=== PATIENT | female | born 1945 | race Caucasian/White ===

== ENCOUNTER 2016-05-06 07:53 | Outpatient (CLI) | payer MEDICARE, MEDICAID ==
[2016-05-06] MEDS ORDERED: GADOBUTROL 10 MMOL/10 ML VIAL IVP ONE (09:14)
== END 2016-05-06 07:54 | disposition home or self-care (01) ==
DX: C43.71 Malignant melanoma of right lower limb, including hip (principal); G93.0 Cerebral cysts; R26.81 Unsteadiness on feet
CPT/HCPCS: 36415; 70553; 82565; A9585

== ENCOUNTER 2016-05-31 | Outpatient (CLI) | payer MEDICARE, MEDICAID | END 2016-05-31 10:12 | disposition EMS.NT ==

== ENCOUNTER 2017-05-01 10:08 | Outpatient (CLI) | payer MEDICARE, MEDICAID ==
[2017-05-01 18:06] LABS: BASOPHILS % (AUTO) 0.6 %; EOSINOPHILS # (AUTO) 0.2 10^3/uL (0.0-0.7); EOSINOPHILS % (AUTO) 3.8 %; HGB - HEMOGLOBIN 13.4 g/dL (12.0-16.0); LYMPHOCYTES % (AUTO) 32.7 %; MEAN CORPUSCULAR HEMOGLOBIN 30.3 pg (27.0-31.0); MEAN CORPUSCULAR VOLUME 91.9 fL (81.0-99.0); MEAN PLATELET VOLUME 9.6 fL (7.9-10.8); MONOCYTES # (AUTO) 0.4 10^3/uL (0.0-1.0); MONOCYTES % (AUTO) 6.8 %; NEUTROPHILS # (AUTO) 3.4 10^3/uL (1.5-6.6); NEUTROPHILS % (AUTO) 56.1 %; PLT - PLATELET COUNT 301 10^3/uL (130-450); RED BLOOD COUNT 4.42 10^6/uL (4.20-5.40); RED CELL DISTRIBUTION WIDTH 14.4 % (12.0-15.0)
[2017-05-01 18:27] LABS: ALBUMIN 3.6 g/dL (3.2-5.5); ALBUMIN/GLOBULIN RATIO 1.1 (1.0-2.2); ALKALINE PHOSPHATASE 43 IU/L (42-121); ALT ALANINE AMINOTRANSFERASE 29 IU/L (10-60); AST ASPARTATE AMINOTRANSFERASE 22 IU/L (10-42); BILIRUBIN,TOTAL 0.3 mg/dL (0.2-1.0); BUN - BLOOD UREA NITROGEN 18 mg/dL (6-20); CALCIUM 9.1 mg/dL (8.5-10.3); CARBON DIOXIDE - CO2 27 mmol/L (21-32); CHLORIDE 105 mmol/L (101-111); CHOL/HDL RATIO 4.5 (<4.4); CHOLESTEROL 196 mg/dL; CREATININE 0.7 mg/dL (0.4-1.0); GFR - MDRD 83 (>89); GLUCOSE 94 mg/dL (70-100); HDL CHOLESTEROL 44 mg/dL; LDL CHOLESTEROL,CALCULATED 121 mg/dL; LDL/HDL RATIO 2.8 (<4.4); SODIUM 138 mmol/L (135-145); TOTAL PROTEIN 6.8 g/dL (6.7-8.2); VLDL CHOLESTEROL 31 mg/dL
[2017-05-01 18:35] LABS: HB2 TOTAL 14.6 g/dL; HEMOGLOBIN A1C 0.57 g/dL; HEMOGLOBIN A1C % 5.7 % (4.6-6.2)
== END 2017-05-01 10:09 | disposition home or self-care (01) ==
LOC: LAB.F 10:08
PROVIDERS: ATTEND Physician Assistant Medical
DX: E88.81 Metabolic syndrome and other insulin resistance (principal); R73.01 Impaired fasting glucose; E78.00 Pure hypercholesterolemia, unspecified; D64.9 Anemia, unspecified; E04.1 Nontoxic single thyroid nodule
CPT/HCPCS: 36415; 80053; 80061; 83036; 84443; 85025

== ENCOUNTER 2017-08-14 13:43 | Outpatient (CLI) | payer MEDICARE, MEDICAID | END 2017-08-14 13:44 | disposition home or self-care (01) | LOC: DI 13:43 | PROVIDERS: ATTEND Nurse Practitioner Family | DX: R42 Dizziness and giddiness (principal); R06.02 Shortness of breath; I51.7 Cardiomegaly; I27.20 Pulmonary hypertension, unspecified; I51.9 Heart disease, unspecified | CPT/HCPCS: 93306 ==

== ENCOUNTER 2018-09-24 08:00 | Outpatient (CLI) | payer MEDICARE ==
[2018-09-24 18:11] LABS: BASOPHILS # (AUTO) 0.1 10^3/uL (0.0-0.1); BASOPHILS % (AUTO) 0.8 %; EOSINOPHILS # (AUTO) 0.2 10^3/uL (0.0-0.7); EOSINOPHILS % (AUTO) 3.5 %; HGB - HEMOGLOBIN 13.3 g/dL (12.0-16.0); LYMPHOCYTES # (AUTO) 1.9 10^3/uL (1.5-3.5); LYMPHOCYTES % (AUTO) 30.1 %; MEAN CORPUSCULAR HEMOGLOBIN 29.3 pg (27.0-31.0); MEAN CORPUSCULAR HGB CONC 32.5 g/dL (32.0-36.0); MEAN CORPUSCULAR VOLUME 90.4 fL (81.0-99.0); MEAN PLATELET VOLUME 9.4 fL (7.9-10.8); MONOCYTES # (AUTO) 0.4 10^3/uL (0.0-1.0); MONOCYTES % (AUTO) 6.4 %; NEUTROPHILS # (AUTO) 3.8 10^3/uL (1.5-6.6); NEUTROPHILS % (AUTO) 59.2 %; PLT - PLATELET COUNT 310 10^3/uL (130-450); RED BLOOD COUNT 4.52 10^6/uL (4.20-5.40); RED CELL DISTRIBUTION WIDTH 14.6 % (12.0-15.0); WHITE BLOOD COUNT 6.4 x10^3/uL (4.8-10.8)
[2018-09-24 18:30] LABS: ALBUMIN 3.9 g/dL (3.2-5.5); ALBUMIN/GLOBULIN RATIO 1.3 (1.0-2.2); BILIRUBIN,TOTAL 0.3 mg/dL (0.2-1.0); CALCIUM 9.4 mg/dL (8.5-10.3); TOTAL PROTEIN 6.9 g/dL (6.7-8.2)
[2018-09-24 19:31] LABS: HB2 TOTAL 13.8 g/dL; HEMOGLOBIN A1C 0.55 g/dL; HEMOGLOBIN A1C % 5.8 % (4.6-6.2)
== END 2018-09-24 23:59 | disposition home or self-care (01) ==
LOC: LAB.F 08:00
PROVIDERS: ATTEND Physician Assistant Medical
DX: I10 Essential (primary) hypertension (principal); R73.01 Impaired fasting glucose; E04.1 Nontoxic single thyroid nodule
CPT/HCPCS: 36415; 80053; 83036; 84443; 85025

== ENCOUNTER 2018-12-14 11:01 | Outpatient (CLI) | payer MEDICARE | END 2018-12-14 11:02 | disposition critical access hospital (66) | LOC: EMS 11:01 | PROVIDERS: ATTEND Surgery | DX: R07.1 Chest pain on breathing (principal); M54.9 Dorsalgia, unspecified; R05 Cough | CPT/HCPCS: A0425; A0427 ==

== ENCOUNTER 2018-12-14 11:29 | Observation (INO) | payer MEDICARE ==
--- NOTE | 2018-12-14 11:58 | ED Physician Documentation ---
PD HPI CHEST PAIN - Stated complaint Stated Complaint: BACK PX - Chief complaint Chief Complaint: General - History obtained from History obtained from: Patient - History of Present Illness Timing - onset: How many days ago (8) Timing - onset during: Rest Timing - details: Abrupt onset, Still present (worsening through the week. Initially left sided, but having right chest pain now the past couple of days.) Quality: Sharp, Pain. No: Pressure, Tightness Location: Left chest (initially), Right chest (now right sided as well) Radiation: Back. No: Jaw, Neck, Abdominal Worsened by: Exertion, Inspiration. No: Movement Associated symptoms: Shortness of air, Feeling faint / dizzy. No: Nausea, Palpitations, Cough Similar symptoms before: Has not had sx before Recently seen: Clinic (seen at clinic today and referred to ER by PV. Had been to clinic couple weeks ago for just fatigue and dyspnea. Had not had chest pain at that time.) Review of Systems Constitutional: reports: Fatigue. denies: Fever, Chills, Myalgias Nose: denies: Rhinorrhea / runny nose, Congestion Throat: denies: Sore throat Cardiac: reports: Chest pain / pressure, Calf pain (had some pain right medial thigh and calf about 2 weeks ago. This improved though just prior to onset of the pleuritic pain.). denies: Palpitations, Pedal edema Respiratory: reports: Dyspnea. denies: Cough, Wheezing GI: denies: Abdominal Pain, Nausea, Vomiting, Diarrhea, Bloody / black stool : denies: Dysuria, Frequency, Hematuria Musculoskeletal: denies: Neck pain, Back pain Neurologic: reports: Generalized weakness, Near syncope (feeling lightheaded with standing and walking recently). denies: Focal weakness, Numbness, Syncope Endocrine: denies: Weight loss, Easy bruising / bleeding PD PAST MEDICAL HISTORY - Past Medical History Cardiovascular: Hypertension, High cholesterol, Atrial fibrillation Respiratory: None Endocrine/Autoimmune: Other GI: None, GI bleed (from diverticulitis when on Lovenox post op hip surgery in ? 2014. No other bleeding after that. 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: Hysterectomy, Oophrectomy HEENT: Other Derm: Skin cancer surgery - Present Medications Home Medications: Ambulatory Orders Medication Instructions Recorded Confirmed Citalopram [CeleXA] 40 mg PO DAILY 01/06/13 12/01/14 Metoprolol Succinate [Toprol Xl] 50 mg PO BID 04/21/13 12/01/14 Lisinopril/Hydrochlorothiazide 2 each PO DAILY 07/14/14 12/01/14 [Zestoretic 20-12.5 mg Tablet] Aspirin [Aspirin EC] 81 mg PO DAILY 12/14/18 12/14/18 Buspirone HCl 10 mg PO BID 12/14/18 12/14/18 Doxylamine Succinate [[place]-R[place]] 50 mg PO DAILY PRN 12/14/18 12/14/18 metFORMIN [Glucophage] 500 mg PO DAILY 12/14/18 12/14/18 - Allergies Allergies/Adverse Reactions: Allergies Allergy/AdvReac Type Severity Reaction Status Date / Time Sulfa (Sulfonamide Allergy Severe Hives Verified 12/14/18 11:36 Antibiotics) buspirone HCl * [From BuSpar] AdvReac Severe Confusion Verified 12/14/18 11:36 fluoxetine HCl * AdvReac Severe Confusion Verified 12/14/18 11:36 [From Prozac] paroxetine HCl * [From Paxil] AdvReac Severe Confusion Verified 12/14/18 11:36 sertraline HCl * AdvReac Severe Confusion Verified 12/14/18 11:36 [From Zoloft] venlafaxine HCl * AdvReac Severe Confusion Verified 12/14/18 11:36 [From Effexor] amoxicillin trihydrate * AdvReac Intermediate Nausea/Vomi Verified 12/14/18 11:36 [From Augmentin] ting erythromycin base AdvReac Intermediate Nausea Verified 12/14/18 11:36 potassium clavulanate * AdvReac Intermediate Nausea/Vomi Verified 12/14/18 11:36 [From Augmentin] ting - Social History Does the pt smoke?: No Smoking Status: Never smoker PD ED PE NORMAL - Vitals Vital signs reviewed: Yes - General General: Alert and oriented X 3, No acute distress, Well developed/nourished - HEENT HEENT: Atraumatic, Pharynx benign - Neck Neck: Supple, no meningeal sign, No adenopathy - Cardiac Cardiac: RRR, No murmur - Respiratory Respiratory: Clear bilaterally (no wheeze nor coarse sounds) - Abdomen Abdomen: Soft, Non tender - Female Female : Deferred - Rectal Rectal: Deferred - Back Back: No CVA TTP - Derm Derm: Normal color, Warm and dry - Extremities Extremities: No tenderness to palpate, Normal ROM s pain, No edema, No calf tenderness / cord - Neuro Neuro: Alert and oriented X 3, No motor deficit, Normal speech Results - Vitals Vitals: Vital Signs - 24 hr 12/14/18 12/14/18 12/14/18 11:30 11:43 13:13 Temperature 37.1 C Heart Rate 59 L 57 L 61 Respiratory 20 17 18 Rate Blood Pressure 150/93 H 166/97 H 158/84 H O2 Saturation 99 97 100 12/14/18 15:05 Temperature Heart Rate 58 L Respiratory 15 Rate Blood Pressure 179/95 H O2 Saturation 98 Oxygen O2 Source Room air - EKG (time done) 11:54 Rate: Rate (enter#) (55) Rhythm: NSR [place]: Normal Intervals: Normal HI, LBBB QRS: Normal Ischemia: Normal ST segments. No: ST elevation c/w ischemia, ST depression - Labs Labs: Laboratory Tests 12/14/18 12/14/18 12/14/18 12:00 12:00 12:38 WBC 9.1 RBC 4.36 Hgb 12.2 Hct 38.8 MCV 89.0 MCH 28.0 MCHC 31.4 L RDW 13.6 Plt Count 371 MPV 10.0 Neut # (Auto) 6.3 Lymph # (Auto) 1.9 [place] # (Auto) 0.6 Eos # (Auto) 0.3 Baso # (Auto) 0.0 Absolute Nucleated RBC 0.00 Nucleated RBC % 0.0 PT INR Sodium 140 Potassium 3.6 Chloride 103 Carbon Dioxide 25 Anion Gap 12.0 BUN 19 Creatinine 1.0 Estimated GFR (MDRD) 55 L Glucose 106 H Calcium 9.7 Magnesium 2.0 Total Bilirubin 0.4 AST 14 ALT 12 Alkaline Phosphatase 59 Troponin I High Sens B-Natriuretic Peptide Total Protein 7.2 Albumin 3.5 Globulin 3.7 Albumin/Globulin Ratio 0.9 L Lipase 26 12/14/18 12/14/18 12/14/18 12:38 12:38 13:20 WBC RBC Hgb Hct MCV MCH MCHC RDW Plt Count MPV Neut # (Auto) Lymph # (Auto) [place] # (Auto) Eos # (Auto) Baso # (Auto) Absolute Nucleated RBC Nucleated RBC % PT 14.5 H INR 1.3 H Sodium Potassium Chloride Carbon Dioxide Anion Gap BUN Creatinine Estimated GFR (MDRD) Glucose Calcium Magnesium Total Bilirubin AST ALT Alkaline Phosphatase Troponin I High Sens 4.0 B-Natriuretic Peptide 154 H Total Protein Albumin Globulin Albumin/Globulin Ratio Lipase - Rads (name of study) chest CT-A Radiology: Prelim report reviewed, Discussed with rads (bilateral segmental clots), See rad report chest xray Radiology: Prelim report reviewed (no acute findings), See rad report PD MEDICAL DECISION MAKING - ED course Complexity details: reviewed results (Several segmental PEs are noted. Unclear whether this was one episode with a showering clot or whether there is been sequential clots given her progression of dyspnea and now some right-sided pain 2. She had diverticulitis with bleeding during Lovenox injections after her hip surgery years ago. No subsequent problems with diverticulitis. I would not see this is a contraindication to anticoagulation at this point. I talked with her about it and she agrees.), considered differential (Given the pleuritic chest pain and dyspnea, would look for these as well as effusions or pneumonia. Can check for heart attack and heart failure. Given her report of right thigh pain prior to the onset of the dyspnea and chest pain, would also consider aortic dissection and pulmonary emboli. Will check for the above problems. We can give her some pain medicines to help with a pleuritic pain.), d/w patient, d/w csm consultant (Hospitalist) Departure - Departure Disposition: ED Place in Observation Clinical Impression: Pleuritic chest pain, General weakness Pulmonary emboli Qualifiers: Pulmonary embolism type: other Chronicity: acute Acute cor pulmonale presence: without acute cor pulmonale Qualified Code(s): I26.99 - Other pulmonary embolism without acute cor pulmonale Condition: Stable Record reviewed to determine appropriate education?: Yes
--- NOTE | 2018-12-14 12:10 | XRAY Report ---
Reason: back/chest pain Procedure Date: 12/14/2018 Accession Number: [id number] / [id number] Procedure: XR - Chest 1 View X-Ray CPT Code: 90871 FULL RESULT: EXAM: CHEST RADIOGRAPHY EXAM DATE: 12/14/2018 12:00 PM. CLINICAL HISTORY: Back/chest pain. COMPARISON: XR CHEST PA AND LAT 02/14/2011 5:36 PM. TECHNIQUE: 1 view. FINDINGS: Lungs/Pleura: No focal opacities evident. No pleural effusion. No pneumothorax. Mediastinum: Accounting for interval time frame and differences in technique, the cardiomediastinal contour may be unchanged but now appears more prominent. Other: None. IMPRESSION: Interval increase in prominence of the cardiomediastinal silhouette which may be within limitations of the technique. Otherwise no acute cardiopulmonary abnormality. RADIA
[2018-12-14 12:12] LABS: BASOPHILS % (AUTO) 0.3 %; EOSINOPHILS # (AUTO) 0.3 10^3/uL (0.0-0.7); EOSINOPHILS % (AUTO) 3.1 %; HGB - HEMOGLOBIN 12.2 g/dL (12.0-16.0); LYMPHOCYTES # (AUTO) 1.9 10^3/uL (1.5-3.5); LYMPHOCYTES % (AUTO) 21.3 %; MEAN CORPUSCULAR HGB CONC 31.4 g/dL (32.0-36.0); MONOCYTES # (AUTO) 0.6 10^3/uL (0.0-1.0); MONOCYTES % (AUTO) 6.1 %; NEUTROPHILS # (AUTO) 6.3 10^3/uL (1.5-6.6); NEUTROPHILS % (AUTO) 68.9 %; PLT - PLATELET COUNT 371 10^3/uL (130-450); RED BLOOD COUNT 4.36 10^6/uL (4.20-5.40); RED CELL DISTRIBUTION WIDTH 13.6 % (12.0-15.0); WHITE BLOOD COUNT 9.1 x10^3/uL (4.8-10.8)
[2018-12-14 12:27] LABS: ALBUMIN 3.5 g/dL (3.2-5.5); ALBUMIN/GLOBULIN RATIO 0.9 (1.0-2.2); BILIRUBIN,TOTAL 0.4 mg/dL (0.2-1.0); CALCIUM 9.7 mg/dL (8.5-10.3); TOTAL PROTEIN 7.2 g/dL (6.7-8.2)
[2018-12-14] MEDS ORDERED: HYDROmorphone 1 MG/ML CARPUJECT IVP STA (13:16)
[2018-12-14] MEDS ORDERED: KETOROLAC 15 MG/ML VIAL IVP STA (13:16)
[2018-12-14] MEDS ORDERED: DEXAMETHASONE 10 MG/ML VIAL IVP STA (13:16)
[2018-12-14] MEDS ORDERED: IOVERSOL 320 100 ML VIAL IVP ONE ×2 (13:35→13:54)
--- NOTE | 2018-12-14 14:10 | CT Report ---
Reason: pleuritic chest pain for a week; dyspnea Procedure Date: 12/14/2018 Accession Number: [id number] / [id number] Procedure: CT - ANGIO CHEST W/WO CPT Code: FULL RESULT: EXAM: CT ANGIOGRAM CHEST EXAM DATE: 12/14/2018 01:51 PM. CLINICAL HISTORY: Pleuritic chest pain for a week; dyspnea. COMPARISON: None. TECHNIQUE: Routine helical imaging was performed through the chest in the pulmonary arterial phase. IV Contrast: 90 mL of Optiray 320 contrast . Reconstructions: Coronal 3-D MIP reconstructions.Sagittal and coronal. In accordance with CT protocol optimization, one or more of the following dose reduction techniques were utilized for this exam: automated exposure control, adjustment of mA and/or KV based on patient size, or use of iterative reconstructive technique. FINDINGS: Pulmonary Arteries: Diagnostic quality: Adequate through the segmental arteries. Intraluminal filling defects consistent with pulmonary emboli are seen within the lobular and segmental pulmonary arteries to the bilateral lower lobes, and the proximal left upper lobe pulmonary artery. RV/LV is within normal limits. There is no interventricular septal bowing. There is no reflux of contrast material in the IVC. Lungs/Pleura: Small consolidations at both posterior lung bases. No lung nodules identified. No pneumothorax. Small bilateral pleural fluid collections. Mediastinum: Normal. No cardiac enlargement or adenopathy. Thoracic Aorta: Unremarkable. Upper Abdomen: Unremarkable. Other: None. IMPRESSION: Bilateral pulmonary emboli involving the lobar and segmental arteries to both lower lobes, and the lobar pulmonary artery to the left upper lobe. RADIA The critical result notification system was initiated by Dr. Gold Maravilla at 02:08 PM on 12/14/2018. ADDENDUM: 12/14/18 14:28 The above critical result findings were discussed with Deon Rowe by Dr. Gold Maravilla at 02:28 PM on 12/14/2018.
[2018-12-14] MEDS ORDERED: ENOXAPARIN 100 MG/ML SYRINGE SUBQ STA (14:48)
[2018-12-14] MEDS ORDERED: MORPHINE 2 MG/ML CARPUJECT IVP PRN (15:16)
[2018-12-14] MEDS ORDERED: SODIUM CHLORIDE FLUSH 0.9% 10 ML SYRINGE IVP PRN (15:16)
[2018-12-14] MEDS ORDERED: PROCHLORPERAZINE 10 MG/2 ML VIAL IVP PRN (15:16)
[2018-12-14] MEDS ORDERED: ACETAMINOPHEN 325 MG TABLET PO PRN (15:16)
[2018-12-14 15:44] LABS: INR 1.3 (0.8-1.2); PT - PROTHROMBIN TIME 14.5 secs (9.9-12.6)
[2018-12-14 15:57] LABS: HB2 TOTAL 12.7 g/dL; HEMOGLOBIN A1C 0.53 g/dL
[2018-12-14] MEDS ORDERED: DOXYLAMINE 25 MG TABLET PO PRN (16:43)
[2018-12-14] MEDS: INSULIN ASPART 300 UNIT/3 ML PEN SUBQ SCH ×2 (17:32→20:39)
[2018-12-14] MEDS ORDERED: oxyCODONE/ACET 5/325 Prepack 4 PO SCH (18:00)
--- NOTE | 2018-12-14 18:05 | HISTORY & PHYSICAL EXAMINATION ---
DATE OF SERVICE: 12/14/2018 Physician: Leslie Valdivia MD HISTORY OF PRESENT ILLNESS: This is a 73-year-old white female with history of hypertension, obesity, prediabetes, anxiety, and malignant melanoma. In 2013, she was diagnosed with two areas of abnormal moles of the right lower extremity, and had positive lymph nodes in the right groin and pelvis removed with several surgeries. 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 Patient has a history of paroxysmal atrial fibrillation, takes metoprolol and aspirin, has seen a Pack Operator only once or twice for this. She does feel when she gets her rapid racing (which is her Afib), but these occur once or twice a year only. She has different episodes where she gets lightheaded and dizzy when she stands up and is also extremely short of breath at this period of time. These are recurrent, happen about five times per year, have never led to complete syncope. She needs to sit down immediately. Patient had one of these feelings 2-3 weeks ago, when she stood up and was extremely lightheaded plus short of breath, to the point of not being able to speak, and she sat down quickly. Around that period of time, she also noticed a tender, slightly reddened and hard vein in the right calf and thigh, which was painful. It lasted for several days. As this resolved, she started to get pleuritic chest pain occurring mostly in her mid back and worse at night. Over the last 1 week with these pleuritic episodes of pain slowly improving, she has felt new overall weakness. Yesterday, she goggled the word pleurisy, noticed that the symptoms of pulmonary embolism fit her symptoms, and she got in to see a clinic doctor today. They told her that she looked ashen and terrible, and advised to go to the emergency room. In the ER, her workup with a CTA of the chest shows that she has multiple bilateral pulmonary emboli. She is being placed in Observation to initiate anticoagulation and to watch for GI bleeding because in 2014, she had bleeding diverticuli when she was on Lovenox postop for a knee replacement. PAST MEDICAL HISTORY 1. Hypertension. 2. Paroxysmal atrial fibrillation. 3. Obesity. 4. Anxiety. 5. Malignant melanoma ("stage 4") of which she is a survivor. 6. History of diverticular bleed four years ago. 7. History of recurrent lightheadedness with shortness of breath occurring together. FAMILY HISTORY: Her father is not known to her. Her mother of ischemic bowel. She has a brother who of cancer and another brother who is alive and well. She has two children, both have recurrent clots and are on anticoagulants. MEDICATIONS: 1. Aspirin 81 mg daily. 2. Buspirone 10 mg b.i.d. 3. Celexa 40 mg daily. 4. Doxycycline 50 mg daily. 5. Lisinopril/HCTZ 20/12.5 mg b.i.d. 6. Metformin 500 mg daily. 7. Toprol XL 100 mg every night. SOCIAL HISTORY: She is a retired [employer], worked at the [employer] and at [employer] and retired five years ago. 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 She has been twice to different husbands, currently is to a , who she lives with. Patient is an ex-smoker who quit one year ago. She drinks rare alcohol (two drinks per year). She uses no illicit drugs. REVIEW OF SYSTEMS: A comprehensive review of systems was performed and the pertinent positives are listed, the rest are negative. PHYSICAL EXAMINATION GENERAL: Elderly white female. She is in no respiratory distress, but does look weak, ashen and tired. VITAL SIGNS: Blood pressure 170/80, heart rate 50 in sinus rhythm, afebrile, room air saturation 96-98%. HEENT: Reveals poor dentition, but moist oral mucosa. NECK: Without JVD or carotid bruits. CHEST: Diminished breath sounds at the left posterior base. There are no rales, wheezes or any rub heard. HEART: Sounds are normal. No audible murmurs. There is no RV heave or gallop. ABDOMEN: Soft, obese, nontender. EXTREMITIES: Show no clubbing, cyanosis or edema. There is no palpable cord. She has a scar over the left knee from knee replacement. NEUROLOGIC: Grossly intact. LABORATORY STUDIES: INR 1.3. Normal CBC. Normal electrolytes. Normal BUN and creatinine. A1c is 6. Magnesium 2. Normal liver tests. HS troponin Is normal at 4.0. BNP is mildly elevated at 154. Lipase normal. IMAGING: Chest x-ray, mildly increased heart size, otherwise no abnormality. CTA of the chest shows small consolidation of both posterior lung bases, small bilateral pleural fluid, and intraluminal filling defects consistent with pulmonary emboli seen within the lobar and segmental pulmonary arteries to the bilateral lower lobes and the proximal left upper lobe pulmonary artery. EKG: Normal sinus rhythm, left bundle branch block. Since her last EKG from several years ago, the left bundle branch block is new. IMPRESSION/DIAGNOSES 1. Multiple pulmonary emboli. 2. Lightheadedness. 3. Borderline diabetes. 4. Hypertension. 5. History of paroxysmal atrial fibrillation. 6. Left bundle branch block. 7. History of gastrointestinal diverticular bleed. 8. History of malignant melanoma. 9. History of anxiety. PLAN 1. Place patient in Observation on a telemetry to watch for arrhythmias. 2. Obtain an Echo to evaluate LV contractility and whether there is RV strain or pulmonary hypertension. 3. Obtain Doppler of both legs to rule out DVT. 4. Continue with her Metformin, and start sliding scale insulin and fingerstick checks, carb-controlled diet. 5. Continue with her blood pressure medications. 6. She received Lovenox in the emergency room, therefore continue with anticoagulation using Eliquis at 10 mg b.i.d. dose x7 days and then 5 mg b.i.d. for at least 3 months. She will need outpatient evaluation of whether this was a provoked or unprovoked venous thrombosis. The history of 2 children with recurrent blood clots, makes an inherited Protein S or C deficiency likely. In addition, the years of recurrent lightheadedness accompanied with dyspnea could be recurrent episodes of pulmonary emboli causing respiratory symptoms and potentially decrease LV filling that causes orthostasis. Obtain orthostatic VS checks q shift. 7. Before discharge, she will need oximetry measured with exertion, to assess if she needs home O2. 8. Assess for gastrointestinal bleeding or drop in hemoglobin after several doses of the Eliquis. Currently, the benefit of using the anticoagulant outweighs the bleeding risk. This was discussed with patient and she is agreeable with the plan. 9. If there are hemodynamic abnormalities or significant GI bleeding, however, then there would be consideration for transfer for implant of an IVC filter and cardiopulmonary evaluation. DEEP VENOUS THROMBOSIS PROPHYLAXIS: Pharmaceutical. CODE STATUS: FULL CODE. ATTESTATION: Patient is expected to be discharged or transferred to another facility within 96 hours: Yes. cc: Elda Escoto PA-C TD: 12/14/2018 17:11 MTDD
[2018-12-14] MEDS: LISINOPRIL 20 MG TABLET PO SCH ×2 (19:38→19:40)
[2018-12-14] MEDS: FAMOTIDINE 20 MG TABLET PO SCH (20:40)
[2018-12-14] MEDS: busPIRone 5 MG TABLET PO SCH (20:40)
[2018-12-14] MEDS ORDERED: METOPROLOL SUCCINATE 50 MG TABLET PO SCH (21:00)
[2018-12-14] MEDS: SODIUM CHLORIDE FLUSH 0.9% 10 ML SYRINGE IVP SCH (23:29)
--- NOTE | 2018-12-15 00:38 | Ultrasound Report ---
Reason: Pulmonry emboli, eval for DVT source Procedure Date: 12/14/2018 Accession Number: [id number] / [id number] Procedure: US - Duplex Ext Veins Bilateral CPT Code: FULL RESULT: EXAM: BILATERAL LOWER EXTREMITY VENOUS ULTRASOUND EXAM DATE: 12/14/2018 11:50 PM. CLINICAL HISTORY: Pulmonry emboli, eval for DVT source. COMPARISON: None. TECHNIQUE: Real-time sonographic vascular imaging was performed by the insecticide supervisor through the lower extremities utilizing both color-flow and Doppler spectral analysis. Multiple district sales representative static images were saved for review. FINDINGS: Right: Common Femoral Vein (CFV): Occlusive DVT. CFV-GSV Junction: DVT extends into the right greater saphenous vein. Profunda Femoral Vein (PFV): Normal. Femoral Vein (FV) Prox: Normal. Femoral Vein (FV) Mid: Normal. Femoral Vein (FV) Dist: Normal. Popliteal Vein: Normal. Posterior Tibial Veins: Normal. Peroneal Veins: Normal. Left: Common Femoral Vein (CFV): Normal. CFV-GSV Junction: Normal. Profunda Femoral Vein (PFV): Normal. Femoral Vein (FV) Prox: Normal. Femoral Vein (FV) Mid: Normal. Femoral Vein (FV) Dist: Normal. Popliteal Vein: Normal. Posterior Tibial Veins: Normal. Peroneal Veins: Normal. Other: None. IMPRESSION: Right greater saphenous and common femoral DVT. RADIA The critical result notification system was initiated by Dr. aJiron Mcintosh at 12:30 AM on 12/15/2018. The above critical result findings were discussed with Dr. Stern by Dr. Jairon Mcintosh at 12:37 AM on 12/15/2018.
[2018-12-15] MEDS: APIXABAN 5 MG TABLET PO SCH ×2 (00:52→10:52)
[2018-12-15] MEDS: SODIUM CHLORIDE FLUSH 0.9% 10 ML SYRINGE IVP SCH ×2 (00:52→08:40)
[2018-12-15 06:08] LABS: BASOPHILS % (AUTO) 0.1 %; HGB - HEMOGLOBIN 11.1 g/dL (12.0-16.0); LYMPHOCYTES # (AUTO) 1.1 10^3/uL (1.5-3.5); LYMPHOCYTES % (AUTO) 11.1 %; MEAN CORPUSCULAR HEMOGLOBIN 28.3 pg (27.0-31.0); MEAN CORPUSCULAR HGB CONC 31.5 g/dL (32.0-36.0); MEAN CORPUSCULAR VOLUME 89.8 fL (81.0-99.0); MEAN PLATELET VOLUME 10.3 fL (7.9-10.8); MONOCYTES # (AUTO) 0.4 10^3/uL (0.0-1.0); MONOCYTES % (AUTO) 4.3 %; NEUTROPHILS # (AUTO) 8.5 10^3/uL (1.5-6.6); NEUTROPHILS % (AUTO) 83.9 %; PLT - PLATELET COUNT 372 10^3/uL (130-450); RED BLOOD COUNT 3.92 10^6/uL (4.20-5.40); RED CELL DISTRIBUTION WIDTH 13.4 % (12.0-15.0); WHITE BLOOD COUNT 10.1 x10^3/uL (4.8-10.8)
[2018-12-15] MEDS: INSULIN ASPART 300 UNIT/3 ML PEN SUBQ SCH ×2 (07:41→11:52)
--- NOTE | 2018-12-15 08:05 | Discharge Plan ---
Discharge Plan Problem Reviewed?: Yes Disposition: Home, Self Care Condition: Stable Prescriptions: Apixaban [Eliquis] 10 mg PO BID #60 tablet Diet: Diabetic Activity Restrictions: Activity as Tolerated Shower Restrictions: No Driving Restrictions: No Instruction Topics: Apixaban oral tablets, Celecoxib capsules, Protein S Blood, DVT Complications, Embolism Pulmonary, IVC Filter Placement About Health Concerns: Admitted with pleuritic pain and multiple pulmonary emboli diagnosed. Also a DVT of R leg confirmed. The Echo did find mild stress of the right heart and mild pulmonary HTN. The previous symptoms of sudden shortness of breath and lightheadedness MAY be recurrent pulmonary embolizations. The family history of blood clots is concerning, and you need evaluation of having an inherited disorder, and may need blood thinners life-long. Plan of Treatment: Blood thinner, Eliquis (Apixiban), was started, and the dose is 10 mg twice a day for 1 week, the 5 mg twice a day. Stop taking the daily aspirin since they increase your bleeding risk when taken together. Also, the Celexa medication has a small risk of adding to bleeding. Care Goals: You need a follow-up appointment with your PCP soon for hospital follow-up, and to determine if there is a hereditary problem regarding clots, whether you need a life-long blood thinner and whether you should be on Celexa, due to it's bleeding risk. Assessment: The patient is agreeable with the plan. Additional Instructions or Follow Up instructions: If you should experience GI bleeding, call your PCP for advice or come to the ER. No Smoking: If you smoke, Please STOP! Call for help. Follow-up with: Elda Escoto PA-C [Primary Care Provider] -
[2018-12-15] MEDS: FAMOTIDINE 20 MG TABLET PO SCH (08:38)
[2018-12-15] MEDS: LISINOPRIL 20 MG TABLET PO SCH (08:38)
[2018-12-15] MEDS: busPIRone 5 MG TABLET PO SCH (08:38)
[2018-12-15] MEDS ORDERED: CITALOPRAM 10 MG TABLET PO SCH (09:00)
[2018-12-15] MEDS ORDERED: POLYETHYLENE GLYCOL 3350 17 GM PACKET PO SCH (09:00)
[2018-12-15] MEDS ORDERED: [UNRECOGNIZED DRUG - OTHER] PO SCH (09:00)
[2018-12-15] MEDS ORDERED: METFORMIN HCL 500 MG PO SCH (09:00)
[2018-12-15] MEDS ORDERED: fentaNYL 12 MCG PATCH TOP SCH (09:00)
[2018-12-15] MEDS ORDERED: LISINOPRIL PO SCH (09:00)
[2018-12-15] MEDS ORDERED: metFORMIN 500 MG TABLET PO SCH (09:00)
[2018-12-15] MEDS ORDERED: ALPRAZOLAM 1 MG PO SCH (09:00)
[2018-12-15] MEDS ORDERED: HYDROCHLOROTHIAZIDE PO SCH (09:00)
[2018-12-15 12:29] VITALS: BP 154/72
--- NOTE | 2018-12-20 10:05 | PROVIDER PROGRESS NOTE ---
Assessment/Plan - Problem List (1) Multiple pulmonary emboli Assessment/Plan: She has started Eliquis treatment and there are no signs of bleeding. A R leg DVT was found by Doppler exam. (In tghe location of the leg pain that preceded this hospital stay). She will be discharged on a course of Eliquis for a minimum of 3 months. She was told to stop taking the daily aspirin, since she did have a remote GI bleed from diverticuli. There is a family history of blood clots and family members needing anticoagulation. This patient may have a hereditary disorder predisposing her to clots, therefore. She will need follow-up with her PCP to determine if she has protein S, protein C deficiencies and whether she will need lifelong anticoagulation. Patient and spouse understand the plan. (2) Cor pulmonale Assessment/Plan: The Echo done during this admission showed mild RV enlargement and mild pulmonary HTN, with PA pressure 47 mmHg, consistent with cor pulmonale. The concern is that this lady may have had prior pulmonary emboli, based on her description of multiple episodes of sudden shortness of breath with lightheadedness for the past 2 years, which may have added to the findings on Echo. She may Pulmonology follow-up as an outpatient as well. (3) Lightheadedness Assessment/Plan: There are no signs of orthostatic hypotension here. The patient had a very dramatic history of 2 years of sudden lightheadedness with severe shortness of breath. Because those symptoms preceded this presen tation and a diagnosis of pulmonary emboli was now made, the patient may have thrown prior pulmonary emboli each time she had the lightheadedness and severe air hunger. (4) Borderline diabetes mellitus Assessment/Plan: Her A1c was 6.0, therefore a Diabetic diet only was ordered. (5) HTN (hypertension) Assessment/Plan: She had good BP control on her home meds. (6) Paroxysmal A-fib Assessment/Plan: There was a remote Hx of Afib. She was in sinus rhythm this entire admission. (7) LBBB (left bundle branch block) Assessment/Plan: It is unclear from our EMR, if this is an old or new finding. - Lab Result Lab results reviewed: Yes Fish Bone Diagrams: 12/15/18 05:42 12/14/18 12:00 - EKG Results EKG Findings: LBBB - Diagnostic Imaging Results Diagnostic Imaging Results: Final report reviewed Subjective - Subjective Patient Reports: Feeling Better, Resting Comfortably Objective Vital Signs: Oxygen O2 Source Room air General: Alert, Oriented x3 HEENT: Other (Appears less fatigued) Neck: Supple, No JVD Neuro: Non Focal Cardiovascular: Regular rate, No murmurs Respiratory: No respiratory distress, Other (Diminished at bases, no rub heard) Abdomen: Normal bowel sounds, Soft Extremities: No edema, No tenderness/swelling - Results Results: Laboratory Results WBC 10.1 x10^3/uL (4.8-10.8) 12/15/18 05:42 RBC 3.92 10^6/uL (4.20-5.40) L 12/15/18 05:42 Hgb 11.1 g/dL (12.0-16.0) L 12/15/18 05:42 Hct 35.2 % (37.0-47.0) L 12/15/18 05:42 MCV 89.8 fL (81.0-99.0) 12/15/18 05:42 MCH 28.3 pg (27.0-31.0) 12/15/18 05:42 MCHC 31.5 g/dL (32.0-36.0) L 12/15/18 05:42 RDW 13.4 % (12.0-15.0) 12/15/18 05:42 Plt Count 372 10^3/uL (130-450) 12/15/18 05:42 MPV 10.3 fL (7.9-10.8) 12/15/18 05:42 Neut # (Auto) 8.5 10^3/uL (1.5-6.6) H 12/15/18 05:42 Lymph # (Auto) 1.1 10^3/uL (1.5-3.5) L 12/15/18 05:42 [place] # (Auto) 0.4 10^3/uL (0.0-1.0) 12/15/18 05:42 Eos # (Auto) 0.0 10^3/uL (0.0-0.7) 12/15/18 05:42 Baso # (Auto) 0.0 10^3/uL (0.0-0.1) 12/15/18 05:42 Absolute Nucleated RBC 0.00 x10^3/uL 12/15/18 05:42 Nucleated RBC % 0.0 /100WBC 12/15/18 05:42 PT 14.5 secs (9.9-12.6) H 12/14/18 13:20 INR 1.3 (0.8-1.2) H 12/14/18 13:20 Sodium 140 mmol/L (135-145) 12/14/18 12:00 Potassium 3.6 mmol/L (3.5-5.0) 12/14/18 12:00 Chloride 103 mmol/L (101-111) 12/14/18 12:00 Carbon Dioxide 25 mmol/L (21-32) 12/14/18 12:00 Anion Gap 12.0 (6-13) 12/14/18 12:00 BUN 19 mg/dL (6-20) 12/14/18 12:00 Creatinine 1.0 mg/dL (0.4-1.0) 12/14/18 12:00 Estimated GFR (MDRD) 55 (>89) L 12/14/18 12:00 Glucose 106 mg/dL (70-100) H 12/14/18 12:00 Glycated Hemoglobin 6.0 % (4.6-6.2) 12/14/18 12:00 Estim Average Glucose 126 (70-100) H 12/14/18 12:00 Calcium 9.7 mg/dL (8.5-10.3) 12/14/18 12:00 Magnesium 2.0 mg/dL (1.7-2.8) 12/14/18 12:38 Total Bilirubin 0.4 mg/dL (0.2-1.0) 12/14/18 12:00 AST 14 IU/L (10-42) 12/14/18 12:00 ALT 12 IU/L (10-60) 12/14/18 12:00 Alkaline Phosphatase 59 IU/L (42-121) 12/14/18 12:00 Troponin I High Sens 4.0 pg/mL (2.3-14.8) 12/14/18 12:38 B-Natriuretic Peptide 154 pg/mL (5-100) H 12/14/18 12:38 Total Protein 7.2 g/dL (6.7-8.2) 12/14/18 12:00 Albumin 3.5 g/dL (3.2-5.5) 12/14/18 12:00 Globulin 3.7 g/dL (2.1-4.2) 12/14/18 12:00 Albumin/Globulin Ratio 0.9 (1.0-2.2) L 12/14/18 12:00 Lipase 26 U/L (22-51) 12/14/18 12:00 - Procedures Procedures: Procedures EXCIS KNEE SEMILUN CARTL (11/17/13) INJECT STEROID (11/03/13) INJECTION INTO JOINT (11/03/13) KNEE SYNOVECTOMY (11/17/13)
== END 2018-12-15 13:33 | disposition home or self-care (01) ==
LOC: EDUNIT# → ED 11:29 → MS2 15:16
PROVIDERS: ADMIT Internal Medicine; ATTEND Internal Medicine
DX: I26.99 Other pulmonary embolism without acute cor pulmonale (principal); I27.81 Cor pulmonale (chronic); I82.811 Embolism and thrombosis of superficial veins of right lower extremity; I82.411 Acute embolism and thrombosis of right femoral vein; E11.9 Type 2 diabetes mellitus without complications; I10 Essential (primary) hypertension; I48.0 Paroxysmal atrial fibrillation; I44.7 Left bundle-branch block, unspecified; J18.1 Lobar pneumonia, unspecified organism; I27.29 Other secondary pulmonary hypertension; F41.9 Anxiety disorder, unspecified; E66.9 Obesity, unspecified; Z68.34 Body mass index [BMI] 34.0-34.9, adult; Z85.820 Personal history of malignant melanoma of skin; Z87.891 Personal history of nicotine dependence
CPT/HCPCS: 36415; 71045; 71275; 80053; 83036; 83690; 83735; 83880; 84484; 85025; 85610; 93005; 93306; 93970; 96372; 96374; 99284; 99285; A9270; G0378; J1170; J1650; Q9967

== ENCOUNTER 2018-12-20 13:34 | Outpatient (CLI) | payer MEDICARE | END 2018-12-20 13:35 | disposition critical access hospital (66) | LOC: EMS 13:34 | PROVIDERS: ATTEND Surgery | DX: R06.02 Shortness of breath (principal) | CPT/HCPCS: A0425; A0427 ==

== ENCOUNTER 2018-12-20 14:09 | Emergency (ER) | payer MEDICARE ==
[2018-12-20 14:31] LABS: BASOPHILS # (AUTO) 0.1 10^3/uL (0.0-0.1); BASOPHILS % (AUTO) 0.4 %; EOSINOPHILS # (AUTO) 0.3 10^3/uL (0.0-0.7); EOSINOPHILS % (AUTO) 2.5 %; HGB - HEMOGLOBIN 14.1 g/dL (12.0-16.0); LYMPHOCYTES # (AUTO) 2.6 10^3/uL (1.5-3.5); LYMPHOCYTES % (AUTO) 21.5 %; MEAN CORPUSCULAR HEMOGLOBIN 28.7 pg (27.0-31.0); MEAN CORPUSCULAR HGB CONC 32.8 g/dL (32.0-36.0); MEAN CORPUSCULAR VOLUME 87.6 fL (81.0-99.0); MEAN PLATELET VOLUME 9.7 fL (7.9-10.8); MONOCYTES % (AUTO) 8.7 %; NEUTROPHILS # (AUTO) 7.9 10^3/uL (1.5-6.6); NEUTROPHILS % (AUTO) 66.1 %; PLT - PLATELET COUNT 553 10^3/uL (130-450); RED BLOOD COUNT 4.91 10^6/uL (4.20-5.40); RED CELL DISTRIBUTION WIDTH 13.8 % (12.0-15.0); WHITE BLOOD COUNT 11.9 x10^3/uL (4.8-10.8)
[2018-12-20 14:45] LABS: ALBUMIN 3.7 g/dL (3.2-5.5); ALBUMIN/GLOBULIN RATIO 0.9 (1.0-2.2); BILIRUBIN,TOTAL 0.6 mg/dL (0.2-1.0); CALCIUM 9.5 mg/dL (8.5-10.3); CREATININE 1.1 mg/dL (0.4-1.0); TOTAL PROTEIN 7.6 g/dL (6.7-8.2)
--- NOTE | 2018-12-20 14:55 | XRAY Report ---
Reason: SOB Procedure Date: 12/20/2018 Accession Number: [id number] / [id number] Procedure: XR - Chest 1 View X-Ray CPT Code: 82765 FULL RESULT: EXAM: CHEST RADIOGRAPHY EXAM DATE: 12/20/2018 02:00 PM. CLINICAL HISTORY: SOB. COMPARISON: CHEST 1 VIEW 12/14/2018 11:45 AM. TECHNIQUE: 1 view. FINDINGS: Lungs/Pleura: No focal opacities evident. No pleural effusion. No pneumothorax. Mediastinum: Borderline heart size. Similar moderately tortuous aorta. Other: None. IMPRESSION: No convincing acute cardiopulmonary abnormality. RADIA
[2018-12-20] MEDS ORDERED: SODIUM CHLORIDE 0.9% 1,000 ML IV ONE (15:12)
--- NOTE | 2018-12-20 15:13 | ED Physician Documentation ---
History of Present Illness - Stated complaint Stated Complaint: SOA - Chief complaint Chief Complaint: Resp - History obtained from History obtained from: Patient, Family - History of Present Illness Timing: Yesterday Pain level max: 0 Pain level now: 0 - Additonal information Additional information: 73-year-old female presents to the emergency department stating that she started feeling short of breath again last night and today. She was recently diagnosed with bilateral pulmonary emboli. Started on Eliquis. Has not missed any doses. She does not use oxygen at home. She was found to be in atrial fibrillation with rapid ventricular response with EMS. Spontaneously converted to sinus rhythm upon arrival. 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 HEENT: Other Derm: Skin cancer surgery - Present Medications Home Medications: Ambulatory Orders Medication Instructions Recorded Confirmed Citalopram [CeleXA] 40 mg PO DAILY 01/06/13 12/14/18 Metoprolol Succinate [Toprol Xl] 100 mg PO QPM 04/21/13 12/14/18 Lisinopril/Hydrochlorothiazide 1 tab PO BID 07/14/14 12/14/18 [Zestoretic 20-12.5 mg Tablet] Apixaban [Eliquis] 10 mg PO BID #60 tablet 12/14/18 Aspirin [Aspirin EC] 81 mg PO DAILY 12/14/18 12/14/18 Buspirone HCl 10 mg PO BID 12/14/18 12/14/18 Doxylamine Succinate [[place]] 50 mg PO DAILY PRN 12/14/18 12/14/18 metFORMIN [Glucophage] 500 mg PO DAILY 12/14/18 12/14/18 - Allergies Allergies/Adverse Reactions: Allergies Allergy/AdvReac Type Severity Reaction Status Date / Time Sulfa (Sulfonamide Allergy Severe Hives Verified 12/20/18 14:16 Antibiotics) amoxicillin trihydrate * AdvReac Intermediate Nausea/Vomi Verified 12/20/18 14:16 [From Augmentin] ting potassium clavulanate * AdvReac Intermediate Nausea/Vomi Verified 12/20/18 14:16 [From Augmentin] ting buspirone HCl * [From BuSpar] AdvReac Mild Confusion Verified 12/20/18 14:16 erythromycin base AdvReac Mild Nausea Verified 12/20/18 14:16 fluoxetine HCl * AdvReac Mild Confusion Verified 12/20/18 14:16 [From Prozac] paroxetine HCl * [From Paxil] AdvReac Mild Confusion Verified 12/20/18 14:16 sertraline HCl * AdvReac Mild Confusion Verified 12/20/18 14:16 [From Zoloft] venlafaxine HCl * AdvReac Mild Confusion Verified 12/20/18 14:16 [From Effexor] - Social History Does the pt smoke?: No Smoking Status: Never smoker PD ED PE NORMAL - Vitals Vital signs reviewed: Yes - General General: Alert and oriented X 3, No acute distress, Well developed/nourished - HEENT HEENT: PERRL, Moist mucous membranes - Neck Neck: Supple, no meningeal sign - Cardiac Cardiac: RRR, Strong equal pulses - Respiratory Respiratory: No respiratory distress, Clear bilaterally - Abdomen Abdomen: Soft, Non tender, Non distended - Derm Derm: Warm and dry, No rash - Extremities Extremities: No edema - Neuro Neuro: Alert and oriented X 3, 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, No motor deficit, No sensory deficit, Normal speech - Psych Psych: Normal mood, Normal affect Results - Vitals Vitals: Vital Signs - 24 hr 12/20/18 12/20/18 14:10 16:27 Temperature 36.4 C L Heart Rate 78 63 Respiratory 25 H 22 Rate Blood Pressure 143/108 H 145/85 H O2 Saturation 99 98 Oxygen O2 Source Room air - EKG (time done) 1428 Rate: Rate (enter#) (75) Rhythm: NSR [place]: Anterior hemiblock (LAFB) Intervals: Normal [place] QRS: Normal, LVH Ischemia: Normal ST segments - Labs Labs: Laboratory Tests 12/20/18 12/20/18 14:25 14:25 WBC 11.9 H RBC 4.91 Hgb 14.1 Hct 43.0 MCV 87.6 MCH 28.7 MCHC 32.8 RDW 13.8 Plt Count 553 H MPV 9.7 Neut # (Auto) 7.9 H Lymph # (Auto) 2.6 [place] # (Auto) 1.0 Eos # (Auto) 0.3 Baso # (Auto) 0.1 Absolute Nucleated RBC 0.00 Nucleated RBC % 0.0 Sodium 137 Potassium 3.9 Chloride 101 Carbon Dioxide 23 Anion Gap 13.0 BUN 23 H Creatinine 1.1 H Estimated GFR (MDRD) 49 L Glucose 121 H Calcium 9.5 Total Bilirubin 0.6 AST 18 ALT 21 Alkaline Phosphatase 65 Total Protein 7.6 Albumin 3.7 Globulin 3.9 Albumin/Globulin Ratio 0.9 L Lipase 36 - Rads (name of study) cxr Radiology: Prelim report reviewed, EMP read contemporaneously, See rad report (no acute disease) PD MEDICAL DECISION MAKING - ED course Complexity details: reviewed old records, reviewed results, re-evaluated patient, considered differential, d/w patient ED course: Patient feels much better after IV fluids. Symptoms resolved in the emergency department. Ambulating without difficulty. 99 to 100% on room air. We will continue her Eliquis at home. She is well-appearing, nontoxic. Encouraged increased fluid intake. Patient counseled regarding signs and symptoms for which I believe and urgent re-evaluation would be necessary. Patient with good understanding of and agreement to plan and is comfortable going home at this time This document was made in part using voice recognition software. While efforts are made to proofread this document, sound alike and grammatical errors may occur. Departure - Departure Disposition: 01 Home, Self Care Clinical Impression: Dehydration Atrial fibrillation Qualifiers: Atrial fibrillation type: paroxysmal Qualified Code(s): I48.0 - Paroxysmal atrial fibrillation Condition: Good Instructions: ED Afib, ED Dehydration Follow-Up: Elda Escoto PA-C [Primary Care Provider] - Within 3 Days Comments: Return if you worsen. Drink plenty of fluids and continue your current medications. Discharge Date/Time: 12/20/18 16:27
[2018-12-20 16:29] VITALS: BP 145/85
== END 2018-12-20 16:27 | disposition home or self-care (01) ==
LOC: EDUNIT# → ED 14:09
DX: I48.0 Paroxysmal atrial fibrillation (principal); I10 Essential (primary) hypertension; Z79.01 Long term (current) use of anticoagulants
CPT/HCPCS: 36415; 71045; 80053; 83690; 85025; 93005; 96360; 99284

== ENCOUNTER 2020-01-05 10:31 | Outpatient (CLI) | payer MEDICARE, MEDICAID | END 2020-01-05 10:32 | disposition critical access hospital (66) | LOC: EMS 10:31 | PROVIDERS: ATTEND Surgery | DX: I48.91 Unspecified atrial fibrillation (principal); R06.02 Shortness of breath | CPT/HCPCS: A0425; A0427 ==

== ENCOUNTER 2020-01-05 10:58 | Emergency (ER) | payer MEDICAID, MEDICARE ==
--- NOTE | 2020-01-05 11:45 | ED Physician Documentation ---
History of Present Illness - Stated complaint Stated Complaint: AFIB W/RVR - Chief complaint Chief Complaint: Cardiac - History obtained from History obtained from: Patient, Family - History of Present Illness Timing: Other (years) Pain level max: 0 Pain level now: 0 - Additonal information Additional information: 74-year-old female was brought in to the emergency department today after being seen by her primary care provider. She states she has been short of breath for several years with no real changes. Diagnosed with pulmonary embolism last year, never followed up for repeat CT scan or repeat echo. She states the shortness of breath has not gotten any worse. No recent travel. No recent fevers. No cough. Worse with walking, better with rest. She states that her doctor sent her here as she is still having shortness of breath. Has not missed any dose of her Eliquis. She was a smoker, but quit smoking approximately 3 years ago. Worse with walking, better with rest. Review of Systems Constitutional: denies: Fever, Chills Throat: denies: Sore throat Cardiac: denies: Chest pain / pressure, Palpitations Respiratory: reports: Dyspnea GI: denies: Nausea, Vomiting, Diarrhea Skin: denies: Rash Musculoskeletal: denies: Neck pain, Back pain Neurologic: denies: Headache 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, 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, Oophrectomy HEENT: Other Derm: Skin cancer surgery - Present Medications Home Medications: Ambulatory Orders Medication Instructions Recorded Confirmed Citalopram [CeleXA] 40 mg PO DAILY 01/06/13 12/14/18 Metoprolol Succinate [Toprol Xl] 100 mg PO QPM 04/21/13 12/14/18 Lisinopril/Hydrochlorothiazide 1 tab PO BID 07/14/14 12/14/18 [Zestoretic 20-12.5 mg Tablet] Aspirin [Aspirin EC] 81 mg PO DAILY 12/14/18 12/14/18 Buspirone HCl 10 mg PO BID 12/14/18 12/14/18 metFORMIN [Glucophage] 500 mg PO DAILY 12/14/18 12/14/18 Apixaban [Eliquis] 5 mg PO BID 01/05/20 Furosemide [Lasix] 20 mg PO DAILY #14 tablet 01/05/20 hydrOXYzine HCL [Hydroxyzine HCl] 25 mg PO QPM 01/05/20 01/05/20 - Allergies Allergies/Adverse Reactions: Allergies Allergy/AdvReac Type Severity Reaction Status Date / Time Sulfa (Sulfonamide Allergy Severe Hives Verified 01/05/20 11:40 Antibiotics) amoxicillin trihydrate * AdvReac Intermediate Nausea/Vomi Verified 01/05/20 11: 40 [From Augmentin] ting potassium clavulanate * AdvReac Intermediate Nausea/Vomi Verified 01/05/20 11:40 [From Augmentin] ting buspirone HCl * [From BuSpar] AdvReac Mild Confusion Verified 01/05/20 11:40 erythromycin base AdvReac Mild Nausea Verified 01/05/20 11:40 fluoxetine HCl * AdvReac Mild Confusion Verified 01/05/20 11:40 [From Prozac] paroxetine HCl * [From Paxil] AdvReac Mild Confusion Verified 01/05/20 11:40 sertraline HCl * AdvReac Mild Confusion Verified 01/05/20 11:40 [From Zoloft] venlafaxine HCl * AdvReac Mild Confusion Verified 01/05/20 11:40 [From Effexor] - Social History Does the pt smoke?: No Smoking Status: Never smoker PD ED PE NORMAL - Vitals Vital signs reviewed: Yes - General General: Alert and oriented X 3, No acute distress - HEENT HEENT: Moist mucous membranes - Neck Neck: Supple, no meningeal sign - Cardiac Cardiac: Strong equal pulses, Other (irregularly irregular) - Respiratory Respiratory: No respiratory distress, Clear bilaterally - Abdomen Abdomen: Soft, Non tender, Non distended - Derm Derm: Warm and dry - Extremities Extremities: Other (1+ B LE edema) - Neuro Neuro: Alert and oriented X 3 - Psych Psych: Normal mood, Normal affect Results - Vitals Vitals: Vital Signs - 24 hr 01/05/20 01/05/20 01/05/20 10:57 11:30 12:23 Temperature 36.5 C Heart Rate 131 H 128 H 130 H Respiratory 22 17 15 Rate Blood Pressure 159/133 H 125/101 H 142/96 H O2 Saturation 100 96 96 01/05/20 01/05/20 01/05/20 13:30 13:35 13:40 Temperature Heart Rate 112 H 75 63 Respiratory 16 12 14 Rate Blood Pressure 145/87 H 127/84 H 126/83 H O2 Saturation 97 96 96 01/05/20 01/05/20 01/05/20 13:45 14:00 14:36 Temperature 36.5 C Heart Rate 63 65 Respiratory 14 16 Rate Blood Pressure 127/90 H 149/89 H O2 Saturation 96 97 Oxygen O2 Source Room air - EKG (time done) 1103 Rate: Rate (enter#) (107) Rhythm: Atrial fibrillation [place]: LAD Intervals: Wide QRS QRS: LVH Ischemia: Normal ST segments (j point elevation) - Labs Labs: Laboratory Tests 01/05/20 01/05/20 01/05/20 11:45 11:45 11:45 WBC 7.8 RBC 4.72 Hgb 14.1 Hct 42.1 MCV 89.2 MCH 29.9 MCHC 33.5 RDW 14.1 Plt Count 341 MPV 10.3 Neut # (Auto) 4.5 Lymph # (Auto) 2.5 [place] # (Auto) 0.6 Eos # (Auto) 0.2 Baso # (Auto) 0.0 Absolute Nucleated RBC 0.00 Nucleated RBC % 0.0 Sodium 138 Potassium 3.3 L Chloride 103 Carbon Dioxide 24 Anion Gap 11.0 BUN 26 H Creatinine 1.0 Estimated GFR (MDRD) 54 L Glucose 108 H Calcium 9.7 Total Bilirubin 0.6 AST 16 ALT 18 Alkaline Phosphatase 50 Troponin I High Sens 7.4 B-Natriuretic Peptide Total Protein 7.1 Albumin 3.8 Globulin 3.3 Albumin/Globulin Ratio 1.2 Lipase 47 01/05/20 11:45 WBC RBC Hgb Hct MCV MCH MCHC RDW Plt Count MPV Neut # (Auto) Lymph # (Auto) [place] # (Auto) Eos # (Auto) Baso # (Auto) Absolute Nucleated RBC Nucleated RBC % Sodium Potassium Chloride Carbon Dioxide Anion Gap BUN Creatinine Estimated GFR (MDRD) Glucose Calcium Total Bilirubin AST ALT Alkaline Phosphatase Troponin I High Sens B-Natriuretic Peptide 422 H Total Protein Albumin Globulin Albumin/Globulin Ratio Lipase - Rads (name of study) CT angio chest Radiology: Prelim report reviewed, EMP read contemporaneously PD MEDICAL DECISION MAKING - ED course Complexity details: reviewed results, re-evaluated patient, considered differential, d/w patient ED course: 74-year-old female presents to the emergency department with dyspnea for the last several years. She has not been using her CPAP at home. Does appear to have mild heart failure, mild elevation of her BNP. Baseline is around 100. We will start her on Lasix. Encouraged her strongly to utilize her CPAP at home. She will need an echocardiogram as well. Patient is well-appearing, nontoxic. Afebrile. No hypoxia. No significant respiratory distress. Feels better after control of her rapid ventricular response as well. Controlled well with a single dose of diltiazem. Patient counseled regarding signs and symptoms for which I believe and urgent re-evaluation would be necessary. Patient with good understanding of and agreement to plan and is comfortable going home at this time This document was made in part using voice recognition software. While efforts are made to proofread this document, sound alike and grammatical errors may occur. Small linear nonocclusive filling defect within a right lower lobe segmental artery may represent a small acute pulmonary embolus versus chronic postthrombotic changes related to the prior pulmonary embolus seen in this location on the CTPA from 12/14/2018. The remaining pulmonary arteries are intact bilaterally. Departure - Departure Disposition: 01 Home, Self Care Clinical Impression: Atrial fibrillation with controlled ventricular rate, BARBARA (obstructive sleep apnea) Dyspnea Qualifiers: Dyspnea type: unspecified Qualified Code(s): R06.00 - Dyspnea, unspecified CHF (congestive heart failure) Qualifiers: Heart failure type: unspecified Heart failure chronicity: unspecified Qualified Code(s): I50.9 - Heart failure, unspecified Condition: Good Instructions: ED Afib, ED CHF General Follow-Up: Mariann Everett ARNP [Primary Care Provider] - Within 1 week Prescriptions: Furosemide [Lasix] 20 mg PO DAILY #14 tablet Comments: Continue your medications at home. We have controlled the rate of your atrial fibrillation today. You need to have a repeat echocardiogram with your doctor within the next [address] scan does not show any acute abnormalities today. You also need to use your CPAP machine at home. Discharge Date/Time: 01/05/20 14:38
[2020-01-05] MEDS ORDERED: IOVERSOL 320 100 ML VIAL IVP ONE ×2 (11:56→17:36)
[2020-01-05 11:57] LABS: BASOPHILS % (AUTO) 0.5 %; EOSINOPHILS # (AUTO) 0.2 10^3/uL (0.0-0.7); EOSINOPHILS % (AUTO) 2.9 %; HGB - HEMOGLOBIN 14.1 g/dL (12.0-16.0); LYMPHOCYTES # (AUTO) 2.5 10^3/uL (1.5-3.5); LYMPHOCYTES % (AUTO) 31.4 %; MEAN CORPUSCULAR HEMOGLOBIN 29.9 pg (27.0-31.0); MEAN CORPUSCULAR HGB CONC 33.5 g/dL (32.0-36.0); MEAN CORPUSCULAR VOLUME 89.2 fL (81.0-99.0); MEAN PLATELET VOLUME 10.3 fL (7.9-10.8); MONOCYTES # (AUTO) 0.6 10^3/uL (0.0-1.0); MONOCYTES % (AUTO) 7.9 %; NEUTROPHILS # (AUTO) 4.5 10^3/uL (1.5-6.6); PLT - PLATELET COUNT 341 10^3/uL (130-450); RED BLOOD COUNT 4.72 10^6/uL (4.20-5.40); RED CELL DISTRIBUTION WIDTH 14.1 % (12.0-15.0); WHITE BLOOD COUNT 7.8 x10^3/uL (4.8-10.8)
[2020-01-05 12:06] LABS: ALBUMIN 3.8 g/dL (3.2-5.5); ALBUMIN/GLOBULIN RATIO 1.2 (1.0-2.2); BILIRUBIN,TOTAL 0.6 mg/dL (0.2-1.0); CALCIUM 9.7 mg/dL (8.5-10.3); TOTAL PROTEIN 7.1 g/dL (6.7-8.2)
[2020-01-05] MEDS ORDERED: DILTIAZEM 50 MG/10 ML VIAL IVP ONE (13:14)
[2020-01-05] MEDS ORDERED: FUROSEMIDE 20 MG/2 ML VIAL IVP STA (13:14)
--- NOTE | 2020-01-05 13:53 | CT Report ---
PROCEDURE: ANGIO CHEST W/WO INDICATIONS: dyspnea, h/o PE CONTRAST: IV CONTRAST: Optiray 320 ml: 62 PO CONTRAST: *NO PO CONTRAST TECHNIQUE: After the administration of intravenous contrast, 2 mm thick sections acquired from the pulmonary api marcelo to the posterior costophrenic angles. 3-dimensional maximum intensity projection (MIP) coronal a nd sagittal reformats were then acquired through the thorax. For radiation dose reduction, the follow ing was used: automated exposure control, adjustment of mA and/or kV according to patient size. COMPARISON: CT pulmonary angiogram dated 12/14/2018. FINDINGS: Image quality: Excellent. Pulmonary arteries: A linear nonocclusive filling defect is seen within a right posterior lower lobe segmental artery (image 78 of series 5) that may represent a small acute pulmonary embolism versus c hronic postthrombotic changes given history of pulmonary embolism in this location on prior CT from . Pulmonary arteries are normal in size. Lungs and pleura: Lungs are clear. No pleural effusions or pneumothorax. Central and peripheral ai rways are patent. Mediastinum: Heart size is normal, without pericardial effusion. No mediastinal or hilar adenopathy . Thoracic aorta is normal in caliber and enhancement. Esophagus is normal in caliber, without hiat al hernia. Atherosclerotic calcifications are seen in the aorta. Bones and chest wall: No suspicious bony lesions. Ribs and thoracic spine appear intact throughout. The thyroid is normal. No axillary or supraclavicular adenopathy. Abdomen: Visualized upper abdominal solid organs appear normal. Status post cholecystectomy. IMPRESSION: Small linear nonocclusive filling defect within a right lower lobe segmental artery may represent a s mall acute pulmonary embolus versus chronic postthrombotic changes related to the prior pulmonary emb olus seen in this location on the CTPA from 12/14/2018. The remaining pulmonary arteries are intact bi laterally. Reviewed by: Valdez Chacon MD on 01/05/2020 1:52 PM PDT Approved by: Valdez Chacon MD on 01/05/2020 1:52 PM PDT Station ID: [id number]
[2020-01-05 14:01] VITALS: BP 149/89
== END 2020-01-05 14:38 | disposition home or self-care (01) ==
LOC: EDUNIT# → ED 10:58
DX: I11.0 Hypertensive heart disease with heart failure (principal); I50.9 Heart failure, unspecified; I48.91 Unspecified atrial fibrillation; I44.7 Left bundle-branch block, unspecified; G47.33 Obstructive sleep apnea (adult) (pediatric); Z86.711 Personal history of pulmonary embolism; Z79.01 Long term (current) use of anticoagulants; Z79.82 Long term (current) use of aspirin; Z87.891 Personal history of nicotine dependence
CPT/HCPCS: 36415; 71275; 80053; 83690; 83880; 84484; 85025; 93005; 96374; 99284; Q9967

== ENCOUNTER 2020-03-12 01:22 | Outpatient (CLI) | payer MEDICARE | END 2020-03-12 01:23 | disposition EMS.NT | LOC: EMS 01:22 | PROVIDERS: ATTEND Surgery | DX: R06.02 Shortness of breath (principal); R11.2 Nausea with vomiting, unspecified; F41.9 Anxiety disorder, unspecified ==

== ENCOUNTER 2020-04-04 15:17 | Outpatient (CLI) | payer MEDICARE | END 2020-04-04 15:18 | disposition EMS.NT | LOC: EMS 15:17 | PROVIDERS: ATTEND Surgery | DX: R11.2 Nausea with vomiting, unspecified (principal); R19.7 Diarrhea, unspecified; R10.9 Unspecified abdominal pain ==

== ENCOUNTER 2020-10-10 07:19 | Outpatient (CLI) | payer MEDICARE | END 2020-10-10 07:20 | disposition home or self-care (01) | LOC: DI 07:19 | PROVIDERS: ATTEND Registered Nurse | DX: R06.02 Shortness of breath (principal); R06.09 Other forms of dyspnea; I26.99 Other pulmonary embolism without acute cor pulmonale; I34.0 Nonrheumatic mitral (valve) insufficiency; I37.1 Nonrheumatic pulmonary valve insufficiency | CPT/HCPCS: 93306 ==

== ENCOUNTER 2020-10-15 23:27 | Outpatient (CLI) | payer MEDICARE | END 2020-10-15 23:28 | disposition short-term general hospital (02) | LOC: EMS 23:27 | DX: R23.2 Flushing (principal); R42 Dizziness and giddiness; R11.0 Nausea; R23.1 Pallor; R53.1 Weakness; R15.9 Full incontinence of feces | CPT/HCPCS: A0425; A0427 ==

== ENCOUNTER 2020-10-23 09:17 | Outpatient (CLI) | payer MEDICARE | END 2020-10-23 09:18 | disposition short-term general hospital (02) | LOC: EMS 09:17 | DX: I48.91 Unspecified atrial fibrillation (principal); R06.00 Dyspnea, unspecified | CPT/HCPCS: A0425; A0429 ==

== ENCOUNTER 2021-02-15 11:30 | Outpatient (CLI) | payer MEDICARE | END 2021-02-15 11:31 | disposition EMS.NT | LOC: EMS 11:30 | DX: R53.1 Weakness (principal); R42 Dizziness and giddiness; R06.02 Shortness of breath; R53.81 Other malaise ==

== ENCOUNTER 2021-08-16 18:28 | Outpatient (CLI) | payer MEDICARE | END 2021-08-16 18:29 | disposition EMS.NT | LOC: EMS 18:28 | DX: R55 Syncope and collapse (principal) ==

== ENCOUNTER 2022-02-03 21:13 | Outpatient (CLI) | payer MEDICARE | END 2022-02-03 21:14 | disposition critical access hospital (66) | LOC: EMS 21:13 | DX: R41.0 Disorientation, unspecified (principal); R06.09 Other forms of dyspnea | CPT/HCPCS: A0425; A0429 ==

== ENCOUNTER 2023-07-27 16:46 | Outpatient (CLI) | payer MEDICARE | END 2023-07-27 23:59 | disposition critical access hospital (66) | LOC: EMS 16:46 | DX: S09.90XA Unspecified injury of head, initial encounter (principal); M25.551 Pain in right hip; M54.6 Pain in thoracic spine; W18.39XA Other fall on same level, initial encounter; Y92.009 Unspecified place in unspecified non-institutional (private) residence as the place of occurrence of the external cause; R55 Syncope and collapse; Z79.01 Long term (current) use of anticoagulants; I48.91 Unspecified atrial fibrillation; I10 Essential (primary) hypertension | CPT/HCPCS: A0425; A0427 ==

== ENCOUNTER 2023-07-27 17:20 | Emergency (ER) | payer MEDICARE ==
--- NOTE | 2023-07-27 17:27 | ED Physician Documentation ---
History of Present Illness - Stated complaint Stated Complaint: SYNCOPE - History obtained from History obtained from: Patient, EMS - Additonal information Additional information: 77-year-old woman with history of atrial fibrillation had a tough night last night. Her had a GI bleed and ended up being transferred to [place]. She did not sleep at all. Earlier today she was on her way to the bathroom and her right leg gave out on her. She says is not uncommon, she had an extensive melanoma removal from that leg about 10 years ago. She did fall and hit her head but does not feel injured per se but is worried about a head injury noting that she is on Eliquis. In contrast to the paramedics report she is adamant that she did not have a syncopal episode. Main complaint right now is she would like something to help her relax, she is very anxious about her 's health. She is not on anything for rate control she says right now other than flecainide. She used to be on metoprolol, but says it was discontinued and she is not quite sure why. 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, Colonoscopy /[place] [employer]: Hysterectomy, Oophrectomy HEENT: Other Derm: Skin cancer surgery - Present Medications Home Medications: Ambulatory Orders Medication Instructions Recorded Confirmed Citalopram [CeleXA] 40 mg PO DAILY 01/06/13 12/14/18 Metoprolol Succinate [Toprol Xl] 100 mg PO QPM 04/21/13 12/14/18 Lisinopril/Hydrochlorothiazide 1 tab PO BID 07/14/14 12/14/18 [Zestoretic 20-12.5 mg Tablet] Aspirin [Aspirin EC] 81 mg PO DAILY 12/14/18 12/14/18 Buspirone HCl 10 mg PO BID 12/14/18 12/14/18 metFORMIN [Glucophage] 500 mg PO DAILY 12/14/18 12/14/18 Apixaban [Eliquis] 5 mg PO BID 01/05/20 Furosemide [Lasix] 20 mg PO DAILY #14 tablet 01/05/20 hydrOXYzine HCL [Hydroxyzine HCl] 25 mg PO QPM 01/05/20 01/05/20 Alprazolam [Xanax] 0.25 mg PO BID PRN #10 tablet 02/04/22 - Allergies Allergies/Adverse Reactions: Allergies Allergy/AdvReac Type Severity Reaction Status Date / Time Sulfa (Sulfonamide Allergy Severe Hives Verified 02/03/22 21:51 Antibiotics) amoxicillin trihydrate * AdvReac Intermediate Nausea/Vomi Verified 02/03/22 21:51 [From Augmentin] ting potassium clavulanate * AdvReac Intermediate Nausea/Vomi Verified 02/03/22 21:51 [From Augmentin] ting buspirone HCl * [From BuSpar] AdvReac Mild Confusion Verified 02/03/22 21:51 erythromycin base AdvReac Mild Nausea Verified 02/03/22 21:51 fluoxetine HCl * AdvReac Mild Confusion Verified 02/03/22 21:51 [From Prozac] paroxetine HCl * [From Paxil] AdvReac Mild Confusion Verified 02/03/22 21:51 sertraline HCl * AdvReac Mild Confusion Verified 02/03/22 21:51 [From Zoloft] venlafaxine HCl * AdvReac Mild Confusion Verified 02/03/22 21:51 [From Effexor] - Social History Does the pt smoke?: No Smoking Status: Never smoker PD ED PE NORMAL - Vitals Vital signs reviewed: Yes - General General: Alert and oriented X 3, No acute distress - HEENT HEENT: PERRL, EOMI - Neck Neck: Supple, no meningeal sign, No bony TTP - Cardiac Cardiac: Other (Rapid and irregular without murmur) - Respiratory Respiratory: No respiratory distress, Clear bilaterally - Abdomen Abdomen: Non tender - Neuro Neuro: Alert and oriented X 3, aids nurse 2-12 intact, No motor deficit, No sensory deficit, Normal speech Eye Opening: Spontaneous Motor: Obeys Commands Verbal: Oriented GCS Score: 15 - Psych Psych: Normal mood, Normal affect Results - Vitals Vitals: Vital Signs - 24 hr 07/27/23 07/27/23 07/27/23 17:24 17:29 17:59 Temperature 36.7 C Heart Rate 106 H 109 H 113 H Respiratory 18 24 16 Rate Blood Pressure 204/106 H 181/113 H 185/108 H O2 Saturation 98 98 94 07/27/23 07/27/23 07/27/23 18:15 18:20 18:22 Temperature Heart Rate 86 97 75 Respiratory Rate Blood Pressure 189/120 H 220/134 H 170/125 H O2 Saturation 07/27/23 07/27/23 07/27/23 18:27 18:30 18:35 Temperature Heart Rate 86 86 78 Respiratory Rate Blood Pressure 189/120 H 186/127 H 170/135 H O2 Saturation 07/27/23 07/27/23 07/27/23 18:50 19:00 19:30 Temperature Heart Rate 82 80 80 Respiratory 17 23 Rate Blood Pressure 170/135 H 196/121 H 195/125 H O2 Saturation 99 99 07/27/23 07/27/23 07/27/23 19:35 19:45 19:50 Temperature Heart Rate 80 76 72 Respiratory 18 15 16 Rate Blood Pressure 186/116 H 203/120 H 205/117 H O2 Saturation 98 98 100 07/27/23 07/27/23 07/27/23 19:55 20:00 20:30 Temperature Heart Rate 72 72 77 Respiratory 13 16 24 Rate Blood Pressure 194/112 H 195/107 H 168/99 H O2 Saturation 98 96 96 Oxygen O2 Source Room air - EKG (time done) 1737 EKG releavant findings:: EKG personally interpreted by author of this note. Relevant findings are: Rate: Rate (enter#) (107) Rhythm: Atrial fibrillation Intervals: LBBB Ischemia: Other (She has anterior ST elevation which I think is likely due to the combination of left bundle branch block and strain pattern and less likely ischemia especially since she is not having any anginal symptoms per se.) Compare to prior EKG: Changed from prior EKG (Compared with February 03, 2022 she is now in atrial fibrillation with increased bundle branch block and strain, but overall the ST-T segments appear worse but similar.) Computer interpretation: Agree with computer - Labs Labs: Laboratory Tests 07/27/23 07/27/23 07/27/23 17:30 17:30 17:30 WBC 13.4 H RBC 4.81 Hgb 14.0 Hct 43.6 MCV 90.6 MCH 29.1 MCHC 32.1 RDW 14.4 Plt Count 473 H MPV 10.5 Neut # (Auto) 9.4 H Lymph # (Auto) 3.0 Schley # (Auto) 0.8 Eos # (Auto) 0.0 Baso # (Auto) 0.1 Absolute Nucleated RBC 0.00 Nucleated RBC % 0.0 PT 18.9 H INR 1.8 H Sodium 139 Potassium 3.3 L Chloride 105 Carbon Dioxide 22 Anion Gap 12.0 BUN 20 Creatinine 1.1 Estimated GFR (MDRD) 48 L Glucose 107 H Calcium 9.6 Magnesium Total Bilirubin 0.6 AST 24 ALT 36 Alkaline Phosphatase 56 Total Creatine Kinase Total Protein 6.6 Albumin 3.9 Globulin 2.7 Albumin/Globulin Ratio 1.4 TSH Nasal Adenovirus (PCR) Nasal B. parapertussis DNA (PCR) Nasal Coronavir 229E PCR Nasal Coronavir HKU1 PCR Nasal Coronavir NL63 PCR Nasal Coronavir OC43 PCR Nasal Enterovir/Rhinovir PCR Nasal Influenza B PCR Nasal Influenza A PCR Nasal Parainfluen 1 PCR Nasal Parainfluen 2 PCR Nasal Parainfluen 3 PCR Nasal Parainfluen 4 PCR Nasal RSV (PCR) Nasal B.pertussis DNA PCR Nasal C.pneumoniae (PCR) Stanislaw Human Metapneumo PCR Nasal M.pneumoniae (PCR) Nasal SARS-CoV-2 (PCR) Salicylates Acetaminophen Ethyl Alcohol 07/27/23 07/27/23 17:30 19:45 WBC RBC Hgb Hct MCV MCH MCHC RDW Plt Count MPV Neut # (Auto) Lymph # (Auto) Schley # (Auto) Eos # (Auto) Baso # (Auto) Absolute Nucleated RBC Nucleated RBC % PT INR Sodium Potassium Chloride Carbon Dioxide Anion Gap BUN Creatinine Estimated GFR (MDRD) Glucose Calcium Magnesium 1.7 Total Bilirubin AST ALT Alkaline Phosphatase Total Creatine Kinase 196 Total Protein Albumin Globulin Albumin/Globulin Ratio TSH 2.60 Nasal Adenovirus (PCR) NOT DETECTED Nasal B. parapertussis DNA (PCR) NOT DETECTED Nasal Coronavir 229E PCR NOT DETECTED Nasal Coronavir HKU1 PCR NOT DETECTED Nasal Coronavir NL63 PCR NOT DETECTED Nasal Coronavir OC43 PCR NOT DETECTED Nasal Enterovir/Rhinovir PCR NOT DETECTED Nasal Influenza B PCR NOT DETECTED Nasal Influenza A PCR NOT DETECTED Nasal Parainfluen 1 PCR NOT DETECTED Nasal Parainfluen 2 PCR NOT DETECTED Nasal Parainfluen 3 PCR NOT DETECTED Nasal Parainfluen 4 PCR NOT DETECTED Nasal RSV (PCR) NOT DETECTED Nasal B.pertussis DNA PCR NOT DETECTED Nasal C.pneumoniae (PCR) NOT DETECTED Stanislaw Human Metapneumo PCR NOT DETECTED Nasal M.pneumoniae (PCR) NOT DETECTED Nasal SARS-CoV-2 (PCR) NOT DETECTED Salicylates < 1.5 Acetaminophen 0.1 Ethyl Alcohol < 10.0 - Rads (name of study) CT of the head without acute traumatic findings. Prior craniotomy. Relevant Findings:: Final report received, EMP independent interpretation of test PD Medical Decision Making - ED course ED course: 77-year-old woman is under a lot of stress and her partner is being hospitalized for a GI bleed. She comes in with a weakness episode, not syncope as reported by the paramedics and is found to be in A-fib with mild RVR and significantly hypertensive. Workup in the emergency department demonstrates an unremarkable CBC, elevated INR likely due to her DOAC use, and relatively unremarkable CMP save mild hypokalemia which I will replete. She was administered some IV Lopressor which was repeated and also some lorazepam as she was quite anxious. Subsequently a former DCR Chiquita who is her neighbor came to me and reported that she thinks the patient should be detained because of the status of her house. Patient does not want to be detained and I am not sure that she is truly gravely disabled but given that a prior DCR is making this request we will honor it. Subsequently the DCR Cordelia spoke with Chiquita, the former DCR and it is agreed that she is not detainable and there is no reason for long-term. That said the DCR would still like to talk to the patient and discussed outpatient resources. Subsequently the patient did convert out of A-fib on the monitor after 2 doses of IV Lopressor. She was still talking to the DCR at shift change so care to Dr. Murphy at shift change to follow-up on those recommendations and she does need a ambulatory test, but if she passes that I think she can be safely discharged. Departure - Departure Disposition: 01 Home, Self Care Clinical Impression: Paroxysmal A-fib, Lightheadedness Condition: Stable Instructions: Atrial Fibrillation Dc Comments: You were seen today for weakness episode that cause you to fall. No severe injuries were identified and you were found to be in rapid atrial fibrillation. After 2 doses of IV metoprolol you have converted out of atrial fibrillation. Talk with your horse trader about restarting metoprolol, it is not clear from your history why they stopped it in the first place. Call your doctor to arrange a follow-up appointment, make the next available appointment. In the interim, return anytime if worse or if new symptoms develop. The designated crisis responder did talk to you and we will have the mobile out reach mobile crisis outreach team reach out to you. If you have not heard from them by mid afternoon tomorrow call the crisis line at [phone]
[2023-07-27 17:37] LABS: BASOPHILS # (AUTO) 0.1 10^3/uL (0.0-0.1); BASOPHILS % (AUTO) 0.4 %; EOSINOPHILS % (AUTO) 0.1 %; HCT - HEMATOCRIT 43.6 % (37.0-47.0); LYMPHOCYTES % (AUTO) 22.7 %; MEAN CORPUSCULAR HEMOGLOBIN 29.1 pg (27.0-31.0); MEAN CORPUSCULAR HGB CONC 32.1 g/dL (32.0-36.0); MEAN CORPUSCULAR VOLUME 90.6 fL (81.0-99.0); MEAN PLATELET VOLUME 10.5 fL (7.9-10.8); MONOCYTES # (AUTO) 0.8 10^3/uL (0.0-1.0); MONOCYTES % (AUTO) 6.1 %; NEUTROPHILS # (AUTO) 9.4 10^3/uL (1.5-6.6); NEUTROPHILS % (AUTO) 70.3 %; PLT - PLATELET COUNT 473 10^3/uL (130-450); RED BLOOD COUNT 4.81 10^6/uL (4.20-5.40); RED CELL DISTRIBUTION WIDTH 14.4 % (12.0-15.0); WHITE BLOOD COUNT 13.4 x10^3/uL (4.8-10.8)
[2023-07-27 17:54] LABS: ALBUMIN 3.9 g/dL (3.2-5.5); ALBUMIN/GLOBULIN RATIO 1.4 (1.0-2.2); BILIRUBIN,TOTAL 0.6 mg/dL (0.2-1.0); CALCIUM 9.6 mg/dL (8.5-10.3); CREATININE 1.1 mg/dL (0.6-1.3); POTASSIUM 3.3 mmol/L (3.5-4.5); TOTAL PROTEIN 6.6 g/dL (6.4-8.9)
[2023-07-27 18:05] LABS: INR 1.8 (0.8-1.2); PT - PROTHROMBIN TIME 18.9 secs (9.9-12.6)
--- NOTE | 2023-07-27 18:06 | CT Report ---
PROCEDURE: Head WO INDICATIONS: head inj TECHNIQUE: Noncontrast 4.5 mm thick angled axial sections acquired from the foramen magnum to the vertex. For r adiation dose reduction, the following was used: automated exposure control, adjustment of mA and/or kV according to patient size. COMPARISON: 02/03/2022 FINDINGS: Image quality: Excellent. CSF spaces: Basal cisterns are patent. No extra-axial fluid collections. Ventricles are normal in size and shape. Brain: No midline shift. No intracranial masses or hemorrhage. Nazario-white matter interface is norm al. There is iatrogenic volume loss in the right posterior lateral cerebellum. Skull and face: Prior right suboccipital craniotomy. Calvarium and visualized facial bones are intac t, without suspicious lesions. Sinuses: Visualized sinuses and mastoids are clear. IMPRESSION: No CT evidence of acute trauma. Remote right suboccipital craniotomy for reportedly benign lesion. Reviewed by: Savannah Balderas MD on 07/27/2023 6:05 PM PDT Approved by: Savannah Balderas MD on 07/27/2023 6:05 PM PDT Station ID: [id number]
[2023-07-27] MEDS: METOPROLOL 5 MG/5 ML VIAL IVP STA ×2 (18:17→19:37)
[2023-07-27] MEDS: LORazepam 2 MG/ML VIAL IVP STA (18:18)
[2023-07-27 18:57] LABS: ACETAMINOPHEN 0.1 ug/mL; CK- CREATINE KINASE 196 IU/L (30-223); ETOH - ETHANOL < 10.0 mg/dL; MAGNESIUM 1.7 mg/dL (1.7-2.3)
[2023-07-27 19:00] LABS: SALICYLATE < 1.5 mg/dL
[2023-07-27] MEDS: POTASSIUM CHLORIDE 20 MEQ TABLET PO STA (19:37)
[2023-07-27] MEDS: POTASSIUM CHLOR 10 MEQ/100 ML 10 MEQ/100 ML BAG IV STA (19:48)
[2023-07-27 20:54] LABS: CORONAVIRUS 229E-RESP PCR NOT DETECTED; CORONAVIRUS HKU1-RESP PCR NOT DETECTED; CORONAVIRUS NL63-RESP PCR NOT DETECTED; CORONAVIRUS OC43-RESP PCR NOT DETECTED; HUMAN METAPNEUMOVIRUS NOT DETECTED; INFLUENZA A- RESP PCR PANEL NOT DETECTED; RHINOVIRUS/ENTEROVIRUS NOT DETECTED; SARS-CoV-2 -RESP PCR PANEL NOT DETECTED
[2023-07-27 20:55] LABS: B. PARAPERTUSSIS- RESP PCR PAN NOT DETECTED; B. PERTUSSIS- RESP PCR PANEL NOT DETECTED; C. PNEUMONIAE- RESP PCR PANEL NOT DETECTED; INFLUENZA B - RESP PCR PANEL NOT DETECTED; M. PNEUMONIAE- RESP PCR PANEL NOT DETECTED; PARAINFLUENZA VIRUS 1 NOT DETECTED; PARAINFLUENZA VIRUS 2 NOT DETECTED; PARAINFLUENZA VIRUS 3 NOT DETECTED; PARAINFLUENZA VIRUS 4 NOT DETECTED; RSV- RESP PCR PANEL NOT DETECTED
--- NOTE | 2023-07-28 09:01 | ED Physician Documentation ---
ED Addendum - Addendum Addendum: 07/28/23 Patient signed out to me at shift change from Dr. Murphy. Patient evaluated yesterday by Dr. White for a near syncopal episode and is set for discharge and is awaiting ride from son who is supposed to pick her up this morning. Patient rested comfortably overnight with no voiced complaints. 07/28/23 12:44 Patient's son is here. Plans to take his mother back to her home. She has been ambulating here. Social work has also met with patient and son. An APS report has already been filed. Departure - Departure Disposition: Home, Self Care Clinical Impression: Paroxysmal A-fib, Lightheadedness Condition: Stable Instructions: Atrial Fibrillation Dc Comments: You were seen today for weakness episode that cause you to fall. No severe injuries were identified and you were found to be in rapid atrial fibrillation. After 2 doses of IV metoprolol you have converted out of atrial fibrillation. Talk with your investment manager about restarting metoprolol, it is not clear from your history why they stopped it in the first place. Call your doctor to arrange a follow-up appointment, make the next available appointment. In the interim, return anytime if worse or if new symptoms develop. The designated crisis responder did talk to you and we will have the mobile out reach mobile crisis outreach team reach out to you. If you have not heard from them by mid afternoon tomorrow call the crisis line at [phone] Forms: PCP List Discharge Date/Time: 07/28/23 13:16
[2023-07-28 09:26] LABS: BILIRUBIN,URINE SMALL (NEGATIVE); GLUCOSE, URINE (UA) NEGATIVE (NEGATIVE); KETONES,URINE (UA) TRACE mg/dL (NEGATIVE); LEUKOCYTE ESTERASE, URINE TRACE (NEGATIVE); NITRITE,URINE NEGATIVE (NEGATIVE); OCCULT BLOOD,URINE NEGATIVE (NEGATIVE); PROTEIN,URINE TRACE mg/dL (NEGATIVE); UROBILINOGEN,URINE 0.2 (NORMAL) E.U./dL (NORMAL)
[2023-07-28 09:29] LABS: CLARITY,URINE SL. CLOUDY (CLEAR)
[2023-07-28 09:48] LABS: AMPHETAMINE SCREEN,URINE NEGATIVE (NEGATIVE); BARBITURATE SCREEN,UR NEGATIVE (NEGATIVE); BENZODIAZEPINES SCREEN, URINE POSITIVE (NEGATIVE); BUPRENORPHINE SCREEN, URINE NEGATIVE (NEGATIVE); COCAINE SCREEN URINE NEGATIVE (NEGATIVE); METHADONE SCREEN, URINE NEGATIVE (NEGATIVE); METHAMPHETAMINES SCREEN, URINE NEGATIVE (NEGATIVE); OPIATE SCREEN, URINE NEGATIVE (NEGATIVE); OXYCODONE SCREEN, URINE NEGATIVE (NEGATIVE); THC CANNABINOID SCREEN, URINE NEGATIVE (NEGATIVE); TRICYCLIC ANTIDEPRESSANT,URINE NEGATIVE (NEGATIVE)
[2023-07-28 10:00] LABS: BACTERIA,URINE Moderate /HPF (None Seen); MUCUS,URINE Moderate Strands; RBC,URINE 0-5 /HPF (0-5); SQUAMOUS EPITHELIAL CELL,UR MANY Squamous (<= Few)
[2023-07-28] MEDS: ALPRAZolam 0.25 MG TABLET PO STA (13:03)
[2023-07-28 13:17] VITALS: BP 190/91; O2SAT 99
== END 2023-07-28 13:16 | disposition home or self-care (01) ==
LOC: EDUNIT# → ED 17:20
DX: I48.0 Paroxysmal atrial fibrillation (principal); R42 Dizziness and giddiness; W18.39XA Other fall on same level, initial encounter; Y92.009 Unspecified place in unspecified non-institutional (private) residence as the place of occurrence of the external cause; I10 Essential (primary) hypertension; E78.00 Pure hypercholesterolemia, unspecified; Z79.01 Long term (current) use of anticoagulants; Z79.899 Other long term (current) drug therapy
CPT/HCPCS: 36415; 70450; 80053; 80143; 80306; 81001; 82550; 83735; 84443; 85025; 85610; 87633; 93005; 96365; 96375; 96376; 99284; A9270; G0480; J2060; 80179; 81003; 82077; 87086

== ENCOUNTER 2023-10-22 13:19 | Outpatient (CLI) | payer MEDICARE | END 2023-10-22 13:20 | disposition EMS.NT | LOC: EMS 13:19 | DX: R42 Dizziness and giddiness (principal); R11.2 Nausea with vomiting, unspecified; Z91.81 History of falling ==

== ENCOUNTER 2023-11-08 16:59 | Outpatient (CLI) | payer MEDICARE | END 2023-11-08 23:59 | disposition critical access hospital (66) | LOC: EMS 16:59 | DX: I10 Essential (primary) hypertension (principal); R42 Dizziness and giddiness; R11.0 Nausea; Z58.89 Other problems related to physical environment | CPT/HCPCS: A0425; A0429 ==

== ENCOUNTER 2023-11-08 17:33 | Emergency (ER) | payer MEDICARE ==
--- NOTE | 2023-11-08 18:00 | ED Physician Documentation ---
History of Present Illness - Stated complaint Stated Complaint: PANIC ATTACK/DIZZY - History obtained from History obtained from: Patient - History of Present Illness Timing: Prior to arrival - Additonal information Additional information: Patient is a 78-year-old female presenting to the emergency department which is shortly prior to arrival developed shortness of breath and anxiety symptoms. She is having difficulty describing her symptoms but she felt her heart beating fast and called EMS. While in the route to EMS her symptoms improved and she is still slightly feels anxious but otherwise feels her symptoms were all related to a panic attack. Patient reports history of anxiety denies any other psychiatric history. Patient has history remarkable otherwise for history of PE CHF hypertension left bundle branch block atrial fibrillation and anemia. Patient reports not taking her metoprolol medications as she is not receiving refills from her primary care doctor. Patient denies any chest pain worsening leg swelling at home at this time. 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, Colonoscopy /ST[employer]ER: Hysterectomy, Oophrectomy HEENT: Other Derm: Skin cancer surgery - Present Medications Home Medications: Ambulatory Orders Medication Instructions Recorded Confirmed Citalopram [CeleXA] 40 mg PO DAILY 01/06/13 07/28/23 Metoprolol Succinate [Toprol Xl] 100 mg PO QPM 04/21/13 12/14/18 Lisinopril/Hydrochlorothiazide 1 tab PO BID 07/14/14 12/14/18 [Zestoretic 20-12.5 mg Tablet] Aspirin [Aspirin EC] 81 mg PO DAILY 12/14/18 07/28/23 Buspirone HCl 10 mg PO BID 12/14/18 12/14/18 metFORMIN [Glucophage] 500 mg PO DAILY 12/14/18 07/28/23 Apixaban [Eliquis] 5 mg PO BID 01/05/20 07/28/23 Furosemide [Lasix] 20 mg PO DAILY #14 tablet 01/05/20 hydrOXYzine HCL [Hydroxyzine HCl] 25 mg PO QPM 01/05/20 01/05/20 Alprazolam [Xanax] 0.25 mg PO BID PRN #10 tablet 02/04/22 - Allergies Allergies/Adverse Reactions: Allergies Allergy/AdvReac Type Severity Reaction Status Date / Time Sulfa (Sulfonamide Allergy Severe Hives Verified 11/08/23 18:08 Antibiotics) amoxicillin trihydrate * AdvReac Intermediate Nausea/Vomi Verified 11/08/23 18:08 [From Augmentin] ting potassium clavulanate * AdvReac Intermediate Nausea/Vomi Verified 11/08/23 18:08 [From Augmentin] ting buspirone HCl * [From BuSpar] AdvReac Mild Confusion Verified 11/08/23 18:08 erythromycin base AdvReac Mild Nausea Verified 11/08/23 18:08 fluoxetine HCl * AdvReac Mild Confusion Verified 11/08/23 18:08 [From Prozac] paroxetine HCl * [From Paxil] AdvReac Mild Confusion Verified 11/08/23 18:08 sertraline HCl * AdvReac Mild Confusion Verified 11/08/23 18:08 [From Zoloft] venlafaxine HCl * AdvReac Mild Confusion Verified 11/08/23 18:08 [From Effexor] - Social History Does the pt smoke?: No Smoking Status: Never smoker Does the pt have substance abuse?: No - Immunizations Immunizations are current?: No Immunizations: Other immun not current - POLST Patient has POLST: Yes PD ED PE NORMAL - General General: Alert and oriented X 3, No acute distress - HEENT HEENT: Atraumatic, PERRL, EOMI, Ears normal, Moist mucous membranes - Neck Neck: Supple, no meningeal sign - Cardiac Cardiac: RRR, No murmur, No gallop - Respiratory Respiratory: No respiratory distress, Clear bilaterally - Abdomen Abdomen: Normal bowel sounds - Female Female : Deferred - Derm Derm: Normal color, Warm and dry, No rash - Extremities Extremities: No deformity - Neuro Neuro: Alert and oriented X 3 - Psych Psych: Normal mood, Normal affect, Other (Patient appears in no acute distress able to answer questions and follow commands patient denies any suicidal or homicidal ideations) Results - Vitals Vitals: Vital Signs - 24 hr 11/08/23 18:01 Temperature 36.8 C Heart Rate 90 Respiratory 19 Rate Blood Pressure 196/99 H O2 Saturation 99 Oxygen O2 Source Room air - Labs Labs: Laboratory Tests 11/08/23 11/08/2311/07/24 18:30 18:30 18:30 WBC 10.3 RBC 5.07 Hgb 14.5 Hct 45.2 MCV 89.2 MCH 28.6 MCHC 32.1 RDW 13.6 Plt Count 418 MPV 10.8 Neut # (Auto) 8.1 H Lymph # (Auto) 1.6 Pierce # (Auto) 0.6 Eos # (Auto) 0.0 Baso # (Auto) 0.0 Absolute Nucleated RBC 0.00 Nucleated RBC % 0.0 Sodium 138 Potassium 3.6 Chloride 105 Carbon Dioxide 21 Anion Gap 12.0 BUN 18 Creatinine 1.0 Estimated GFR (MDRD) 54 L Glucose 129 H Calcium 10.3 Magnesium 1.7 1.7 Total Bilirubin 0.5 AST 21 ALT 24 Alkaline Phosphatase 61 Troponin I High Sens 8.9 Total Protein 7.1 Albumin 4.2 Globulin 2.9 Albumin/Globulin Ratio 1.4 PD Medical Decision Making - ED course Complexity details: reviewed old records, reviewed results, d/w patient, d/w family ED course: Patient is a 78-year-old female who presents to the emergency department with diffuse symptoms. Patient reports symptoms of heart palpitations dizziness lightheadedness and called EMS earlier today for her symptoms on arrival patient feels significantly better she feels back to baseline. Basic labs were obtained and EKG showed no acute findings. Patient was reevaluated here in the emergency department with her partner arrived and she notes patient does not seem at her baseline. On reexamination of patient she is now pointing out things and stating she does not know what is going on. This is different from her examination on arrival. Patient notes she feels confused and anxious again. Small dose of Ativan ordered for patient and will reevaluate here in the emergency department. On reevaluation after Ativan given approximately half an hour later patient feels significantly better she is sleeping in the room and appears in no acute distress tachycardia resolved and patient has no acute complaints. Pending urine analysis at this time we will monitor patient here in the emergency department but will plan on discharge home. On reevaluation of patient with partner at bedside again patient appears confused irritated and unsure of what is going on. Partner feels patient is not safe to go home she lives only with her and she notes this is not patient's baseline. Discussed with patient she was feeling fine earlier and she feels symptoms have returned again. Given changes in mental status will obtain CT scan of head for further evaluation. Patient's heart rate has remained normal sinus rhythm however blood pressure has increased 196/99. Will continue to monitor patient on EKG and pulse ox while here in the emergency department. Pending CT scan of head as well as UA and alcohol level. Re-evaluation of patient she is resting in room in no acute distress.
[2023-11-08 18:35] LABS: BASOPHILS % (AUTO) 0.4 %; EOSINOPHILS % (AUTO) 0.2 %; HCT - HEMATOCRIT 45.2 % (37.0-47.0); HGB - HEMOGLOBIN 14.5 g/dL (12.0-16.0); LYMPHOCYTES # (AUTO) 1.6 10^3/uL (1.5-3.5); LYMPHOCYTES % (AUTO) 15.4 %; MEAN CORPUSCULAR HEMOGLOBIN 28.6 pg (27.0-31.0); MEAN CORPUSCULAR HGB CONC 32.1 g/dL (32.0-36.0); MEAN CORPUSCULAR VOLUME 89.2 fL (81.0-99.0); MEAN PLATELET VOLUME 10.8 fL (7.9-10.8); MONOCYTES # (AUTO) 0.6 10^3/uL (0.0-1.0); MONOCYTES % (AUTO) 5.3 %; NEUTROPHILS # (AUTO) 8.1 10^3/uL (1.5-6.6); NEUTROPHILS % (AUTO) 78.5 %; PLT - PLATELET COUNT 418 10^3/uL (130-450); RED BLOOD COUNT 5.07 10^6/uL (4.20-5.40); RED CELL DISTRIBUTION WIDTH 13.6 % (12.0-15.0); WHITE BLOOD COUNT 10.3 x10^3/uL (4.8-10.8)
[2023-11-08 18:56] LABS: ALBUMIN 4.2 g/dL (3.2-5.5); ALBUMIN/GLOBULIN RATIO 1.4 (1.0-2.2); BILIRUBIN,TOTAL 0.5 mg/dL (0.2-1.0); CALCIUM 10.3 mg/dL (8.5-10.3); MAGNESIUM 1.7 mg/dL (1.7-2.3); POTASSIUM 3.6 mmol/L (3.5-4.5); TOTAL PROTEIN 7.1 g/dL (6.4-8.9); TROPONIN I HIGH SENSITIVITY 8.9 ng/L (2.3-14.8)
[2023-11-08] MEDS: LORazepam 0.5 MG TABLET PO STA (19:52)
--- NOTE | 2023-11-08 23:04 | CT Report ---
PROCEDURE: Head WO INDICATIONS: ams TECHNIQUE: Noncontrast 4.5 mm thick angled axial sections acquired from the foramen magnum to the vertex. For r adiation dose reduction, the following was used: automated exposure control, adjustment of mA and/or kV according to patient size. COMPARISON: 07/27/2023 and 02/04/2022 FINDINGS: Image quality: Diagnostic. Moderate patient motion artifact limits evaluation. CSF spaces: Basal cisterns are patent. No extra-axial fluid collections. Ventricles are stable in size and shape. Brain: No midline shift. No intracranial masses or hemorrhage. No mass effect. Nazario-white matter i nterface is normal. There cerebral volume loss for age with resultant ventricular and sulcal prominen ce. There are periventricular and deep white matter chronic small vessel ischemic changes. Atheroscle rotic calcifications are noted in the intracranial segments of the bilateral internal carotid arterie s. Skull and face: Calvarium and visualized facial bones are intact, without suspicious lesions. Stab le postsurgical changes of remote right suboccipital craniotomy. Sinuses: Visualized sinuses and mastoids are clear. IMPRESSION: No acute intracranial pathology. Stable age-related senescent changes and sequela of chronic small vessel ischemic disease. Stable postsurgical changes of right suboccipital craniotomy for reported benign lesion. Reviewed by: Josesito Castellon MD on 11/08/2023 11:02 PM PDT Approved by: Josesito Castellon MD on 11/08/2023 11:02 PM PDT Station ID: [id number]
[2023-11-09 01:15] LABS: BILIRUBIN,URINE NEGATIVE (NEGATIVE); GLUCOSE, URINE (UA) NEGATIVE (NEGATIVE); KETONES,URINE (UA) TRACE mg/dL (NEGATIVE); LEUKOCYTE ESTERASE, URINE NEGATIVE (NEGATIVE); NITRITE,URINE NEGATIVE (NEGATIVE); OCCULT BLOOD,URINE NEGATIVE (NEGATIVE); PH,URINE 6.5 PH (5.0-7.5); PROTEIN,URINE TRACE mg/dL (NEGATIVE); UROBILINOGEN,URINE 0.2 (NORMAL) E.U./dL (NORMAL)
[2023-11-09 01:17] LABS: CLARITY,URINE CLEAR (CLEAR)
--- NOTE | 2023-11-09 03:41 | ED Physician Documentation ---
ED Addendum - Addendum Addendum: 11/09/23 03:38 The patient was signed out to me at change of shift, pending CT and urinalysis and reevaluation. She had presented to the emergency department with a panic attack but seems to be having periods of delirium or altered perception of reality throughout her stay and so she was kept here for further evaluation. The patient's partner stayed with her throughout her stay in the emergency department, and when I came to reevaluate her, the patient reported feeling better and the partner felt she was doing better. The patient stated that she was beginning to realize that the episode she had earlier were not accurate representations of reality. She stated that she has never had anything like this happen before when she has had a panic attack and does not know if it is because of stress or lack of sleep or both. I have advised the patient that if she has further episodes like this, she will need to have further evaluation. However, tonight she does not wish to see mental health and is feeling better and would like to go home. She has requested to have something for anxiety and I will prescribe a small amount of an antianxiety med for her. However, she does see Barbara Lipscomb for primary care and I have advised her to follow-up with Barbara regarding her panic attacks and related concerns. We have discussed the usual indications for return. Final impression 1. Panic attack 2. Stress reaction Disposition: Discharged home in stable and improved condition.
[2023-11-09 03:58] VITALS: O2SAT 97
[2023-11-09 05:23] VITALS: BP 152/81
== END 2023-11-09 05:13 | disposition home or self-care (01) ==
LOC: EDUNIT# → EDBD → ED 17:33
DX: F41.0 Panic disorder [episodic paroxysmal anxiety] (principal); F43.9 Reaction to severe stress, unspecified; I10 Essential (primary) hypertension; I48.91 Unspecified atrial fibrillation; E78.00 Pure hypercholesterolemia, unspecified; Z79.899 Other long term (current) drug therapy; Z79.82 Long term (current) use of aspirin; Z79.84 Long term (current) use of oral hypoglycemic drugs; Z79.01 Long term (current) use of anticoagulants
CPT/HCPCS: 36415; 51701; 70450; 80053; 81003; 83735; 84484; 85025; 93005; 99283; 99284; A9270; G0480; 81001; 82077; 87086

== ENCOUNTER 2023-11-09 10:58 | Outpatient (CLI) | payer MEDICARE | END 2023-11-09 23:59 | disposition critical access hospital (66) | LOC: EMS 10:58 | DX: R53.1 Weakness (principal); Z91.148 Patient's other noncompliance with medication regimen for other reason; I48.91 Unspecified atrial fibrillation | CPT/HCPCS: A0425; A0427 ==

== ENCOUNTER 2023-11-09 11:34 | Observation (INO) | payer MEDICARE ==
--- NOTE | 2023-11-09 12:40 | ED Physician Documentation ---
History of Present Illness - Stated complaint Stated Complaint: WEAKNESS - Chief complaint Chief Complaint: Cardiac - Additonal information Additional information: 77-year-old female presents back to the emergency department for generalized w eakness. She was seen in the emergency department yesterday for a multitude of complaints including weakness, fall hitting her head, altered mental status, anxiety. Patient is overall fairly poor historian they report that they have had a lot of recent interpersonal issues including financial issues and recent loss of their dog which has caused her debilitating anxiety and depression. Last night she was eventually discharged home and her says that she did not know she got up to use the restroom and patient became so weak that she collapsed down to the ground. She does have history of A-fib she is not currently taking the Eliquis as prescribed she has been taking half of the pills to try and spread them out and not properly anticoagulated. She said that she has missed multiple appointments with her primary care provider recently and has been unable to get a medication refill because of this and so she has not been taking her regular prescribed cardiac medications. She cannot tell me much of her past medical history or the routine medication she is taking aside from A- fib and Eliquis. 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 HEENT: Other Derm: Skin cancer surgery - Present Medications Home Medications: Ambulatory Orders Medication Instructions Recorded Confirmed Citalopram [CeleXA] 40 mg PO DAILY 01/06/13 07/28/23 Metoprolol Succinate [Toprol Xl] 100 mg PO QPM 04/21/13 12/14/18 Lisinopril/Hydrochlorothiazide 1 tab PO BID 07/14/14 12/14/18 [Zestoretic 20-12.5 mg Tablet] Aspirin [Aspirin EC] 81 mg PO DAILY 12/14/18 07/28/23 Buspirone HCl 10 mg PO BID 12/14/18 12/14/18 metFORMIN [Glucophage] 500 mg PO DAILY 12/14/18 07/28/23 Apixaban [Eliquis] 5 mg PO BID 01/05/20 07/28/23 Furosemide [Lasix] 20 mg PO DAILY #14 tablet 01/05/20 hydrOXYzine HCL [Hydroxyzine HCl] 25 mg PO QPM 01/05/20 01/05/20 Alprazolam [Xanax] 0.25 mg PO BID PRN #10 tablet 02/04/22 Alprazolam [Xanax] 0.25 mg PO Q6H PRN #12 tablet 11/09/23 - Allergies Allergies/Adverse Reactions: Allergies Allergy/AdvReac Type Severity Reaction Status Date / Time Sulfa (Sulfonamide Allergy Severe Hives Verified 11/08/23 18:08 Antibiotics) amoxicillin trihydrate * AdvReac Intermediate Nausea/Vomi Verified 11/08/23 18:08 [From Augmentin] ting potassium clavulanate * AdvReac Intermediate Nausea/Vomi Verified 11/08/23 18:08 [From Augmentin] ting buspirone HCl * [From BuSpar] AdvReac Mild Confusion Verified 11/08/23 18:08 erythromycin base AdvReac Mild Nausea Verified 11/08/23 18:08 fluoxetine HCl * AdvReac Mild Confusion Verified 11/08/23 18:08 [From Prozac] paroxetine HCl * [From Paxil] AdvReac Mild Confusion Verified 11/08/23 18:08 sertraline HCl * AdvReac Mild Confusion Verified 11/08/23 18:08 [From Zoloft] venlafaxine HCl * AdvReac Mild Confusion Verified 11/08/23 18:08 [From Effexor] - Social History Does the pt smoke?: No Smoking Status: Never smoker Does the pt drink ETOH?: No Does the pt have substance abuse?: No - Immunizations Immunizations are current?: No Immunizations: Other immun not current - POLST Patient has POLST: Yes PD ED PE NORMAL - Vitals Vital signs reviewed: Yes - General General: Alert and oriented X 3, Other (Chronically ill-appearing) - HEENT HEENT: Atraumatic, PERRL - Neck Neck: Supple, no meningeal sign - Cardiac Cardiac: Other (Distant heart sounds, Irregularly irregular) - Respiratory Respiratory: No respiratory distress, Clear bilaterally - Abdomen Abdomen: Normal bowel sounds, Soft, Non tender - Back Back: No CVA TTP - Derm Derm: Normal color, Warm and dry, No rash - Extremities Extremities: No edema, No calf tenderness / cord Results - Vitals Vitals: Vital Signs - 24 hr 11/09/23 11/09/23 11/09/23 11:38 13:00 14:00 Temperature 36.0 C L Heart Rate 76 113 H 124 H Heart Rate [ Sitting] Heart Rate [ Standing] Heart Rate [ Supine] Respiratory 30 H 10 L 12 Rate Blood Pressure 132/74 H 159/101 H 145/111 H Blood Pressure [Sitting] Blood Pressure [Standing] Blood Pressure [Supine] O2 Saturation 99 98 96 11/09/23 11/09/23 11/09/23 15:00 17:23 17:48 Temperature Heart Rate 76 105 H Heart Rate [ 95 Sitting] Heart Rate [ 122 H Standing] Heart Rate [ 80 Supine] Respiratory 16 18 Rate Blood Pressure 181/102 H 201/107 H Blood Pressure 188/106 H [Sitting] Blood Pressure 192/170 H [Standing] Blood Pressure 171/99 H [Supine] O2 Saturation 99 95 11/09/23 19:00 Temperature Heart Rate 75 Heart Rate [ Sitting] Heart Rate [ Standing] Heart Rate [ Supine] Respiratory 18 Rate Blood Pressure 196/108 H Blood Pressure [Sitting] Blood Pressure [Standing] Blood Pressure [Supine] O2 Saturation 96 Oxygen O2 Source Room air - EKG (time done) 1307 EKG releavant findings:: EKG personally interpreted by author of this note. Relevant findings are: Rate: Rate (enter#) (118) Rhythm: Atrial fibrillation [place]: LAD Intervals: LBBB QRS: Normal Ischemia: Normal ST segments Computer interpretation: Agree with computer - Labs Labs: Laboratory Tests 11/09/23 11/09/23 11/09/23 13:26 13:26 16:17 WBC 9.8 RBC 4.85 Hgb 14.2 Hct 43.6 MCV 89.9 MCH 29.3 MCHC 32.6 RDW 13.9 Plt Count 392 MPV 10.9 H Neut # (Auto) 7.4 H Lymph # (Auto) 1.8 [place] # (Auto) 0.6 Eos # (Auto) 0.0 Baso # (Auto) 0.0 Absolute Nucleated RBC 0.00 Nucleated RBC % 0.0 Sodium 139 Potassium 3.5 Chloride 107 Carbon Dioxide 23 Anion Gap 9.0 BUN 18 Creatinine 1.0 Estimated GFR (MDRD) 54 L Glucose 124 H Calcium 9.7 Total Bilirubin 0.5 AST 15 ALT 17 Alkaline Phosphatase 56 Troponin I High Sens 15.6 H* 18.7 H* Total Protein 6.8 Albumin 4.0 Globulin 2.8 Albumin/Globulin Ratio 1.4 Lipase 28 Urine Color Urine Clarity Urine pH Ur Specific [place] Urine Protein Urine Glucose (UA) Urine Ketones Urine Occult Blood Urine Nitrite Urine Bilirubin Urine Urobilinogen Ur Leukocyte Esterase Ur Microscopic Review Urine Culture Comments 11/09/23 16:40 WBC RBC Hgb Hct MCV MCH MCHC RDW Plt Count MPV Neut # (Auto) Lymph # (Auto) [place] # (Auto) Eos # (Auto) Baso # (Auto) Absolute Nucleated RBC Nucleated RBC % Sodium Potassium Chloride Carbon Dioxide Anion Gap BUN Creatinine Estimated GFR (MDRD) Glucose Calcium Total Bilirubin AST ALT Alkaline Phosphatase Troponin I High Sens Total Protein Albumin Globulin Albumin/Globulin Ratio Lipase Urine Color YELLOW Urine Clarity CLEAR Urine pH 7.0 Ur Specific [place] 1.010 Urine Protein NEGATIVE Urine Glucose (UA) NEGATIVE Urine Ketones NEGATIVE Urine Occult Blood NEGATIVE Urine Nitrite NEGATIVE Urine Bilirubin NEGATIVE Urine Urobilinogen 0.2 (NORMAL) Ur Leukocyte Esterase NEGATIVE Ur Microscopic Review NOT INDICATED Urine Culture Comments NOT INDICATED - Rads (name of study) CT angio chest Relevant Findings:: Final report received, EMP independent interpretation of test, Other (No acute pulmonary emboli no acute pulmonary process, mild cardiomegaly with moderate coronary artery calcifications) PD Medical Decision Making - ED course ED course: We attempted to ambulate the patient here in the emergency department and patient was unable to successfully ambulate on her own. Labs are complete for further evaluation she does not have any anemia or white count kidney function is overall unremarkable and electrolytes are also within normal limits. Urinalysis does not show any leukocytes or nitrites making less suspicious for possible UTI. Initial troponin was drawn from triage orders and it was 15.6, yesterday troponin on ER visit 11/08/2023 was found to be 8.9. A repeat troponin draw was done 3 hours later and it was found to be 18.7. She continues deny chest pain or shortness of breath not entirely certain what is causing this weakness but likely due to the fact the patient has been in A-fib with RVR for a prolonged period of time. Today she appears to be in just A-fib, It is unclear how long she was in RVR for which could be contributing to her weakness and elevated troponin. Given that she denies chest pain and shortness of breath I do not believe that she is experiencing an acute coronary syndrome. We did do a CT angio for further evaluation of possible PE given the fact the patient has been quite tachycardic and not been properly taking her medications including her anticoagulants and her CTA was found to be negative. Patient also reports that she been having severe anxiety she has multiple anxiolytics on board so not entirely sure if she has been taking too many of these at home which could be also contributing to her profound weakness. I gave her hydroxyzine here in the emergency department holding off on any benzos. I spoke with Dr. Rahman telemetry hospitalist who has agreed to admit the patient for observation patient is agreeable to stay her and her are quite relieved greatly appreciate Dr. Christianson graciously accepting this patient for hospitalization. Departure - Departure Disposition: ED Place in Observation Clinical Impression: Weakness Forms: PCP List
[2023-11-09 13:31] LABS: BASOPHILS % (AUTO) 0.3 %; HCT - HEMATOCRIT 43.6 % (37.0-47.0); HGB - HEMOGLOBIN 14.2 g/dL (12.0-16.0); LYMPHOCYTES # (AUTO) 1.8 10^3/uL (1.5-3.5); LYMPHOCYTES % (AUTO) 18.3 %; MEAN CORPUSCULAR HEMOGLOBIN 29.3 pg (27.0-31.0); MEAN CORPUSCULAR HGB CONC 32.6 g/dL (32.0-36.0); MEAN CORPUSCULAR VOLUME 89.9 fL (81.0-99.0); MEAN PLATELET VOLUME 10.9 fL (7.9-10.8); MONOCYTES # (AUTO) 0.6 10^3/uL (0.0-1.0); MONOCYTES % (AUTO) 5.6 %; NEUTROPHILS # (AUTO) 7.4 10^3/uL (1.5-6.6); NEUTROPHILS % (AUTO) 75.5 %; PLT - PLATELET COUNT 392 10^3/uL (130-450); RED BLOOD COUNT 4.85 10^6/uL (4.20-5.40); RED CELL DISTRIBUTION WIDTH 13.9 % (12.0-15.0); WHITE BLOOD COUNT 9.8 x10^3/uL (4.8-10.8)
[2023-11-09] MEDS ORDERED: iohexoL-300 100 ML VIAL ONE (13:41)
[2023-11-09 13:53] LABS: ALBUMIN/GLOBULIN RATIO 1.4 (1.0-2.2); BILIRUBIN,TOTAL 0.5 mg/dL (0.2-1.0); CALCIUM 9.7 mg/dL (8.5-10.3); POTASSIUM 3.5 mmol/L (3.5-4.5); TOTAL PROTEIN 6.8 g/dL (6.4-8.9)
[2023-11-09 14:02] LABS: TROPONIN I HIGH SENSITIVITY 15.6 ng/L (2.3-14.8)
[2023-11-09] MEDS: METOPROLOL 5 MG/5 ML VIAL IVP STA ×3 (14:18→18:07)
--- NOTE | 2023-11-09 15:44 | CT Report ---
PROCEDURE: Angio Chest INDICATIONS: SOA, weakness, tachycardia, CONTRAST: Omni 300 80ml TECHNIQUE: After the administration of intravenous contrast, 2 mm axial images were acquired from the pulmonary apices to the posterior costophrenic angles during the arterial phase. In addition, 1 mm lung kernel and 5 mm soft tissue kernel reconstructions were performed. 3-dimensional coronal oblique maximum int ensity projection (MIP) reformats, 8 mm axial MIP, and 5 mm coronal and sagittal MPR reformats were t hen performed through the thorax. For radiation dose reduction, the following was used: automated exp osure control, adjustment of mA and/or kV according to patient size. COMPARISON: 01/05/2020, 12/14/2018. FINDINGS: Image quality: Excellent. Large vessels: No filling defects within the opacified pulmonary arteries, accounting for motion and contrast timing. No evidence of acute aortic syndrome or aortic aneurysm. Lungs and pleura: No consolidation. No pleural effusions. No pneumothorax. No suspicious pulmonary n odules which require follow up. Mediastinum: Heart size is mildly enlarged. No pericardial effusion. Moderate coronary artery calcifi cations. No large vessel abnormality. No mediastinal adenopathy by size criteria. Chest wall and lower neck: 2.5 cm left thyroid nodule, stable dating back to December 14, 2018 No axill roman or supraclavicular adenopathy by size. Bones: No aggressive osseous abnormality. Upper Abdomen: Unremarkable. IMPRESSION: 1. No acute pulmonary emboli. 2. No acute pulmonary process. 3. Mild cardiomegaly, moderate coronary artery calcifications. Reviewed by: Brennen Wilcox MD on 11/09/2023 3:42 PM PDT Approved by: Brennen Wilcox MD on 11/09/2023 3:42 PM PDT Station ID: [id number]
[2023-11-09] MEDS: iohexoL-300 100 ML VIAL IVP ONE (16:02)
[2023-11-09 16:58] LABS: BILIRUBIN,URINE NEGATIVE (NEGATIVE); GLUCOSE, URINE (UA) NEGATIVE (NEGATIVE); KETONES,URINE (UA) NEGATIVE (NEGATIVE); LEUKOCYTE ESTERASE, URINE NEGATIVE (NEGATIVE); NITRITE,URINE NEGATIVE (NEGATIVE); OCCULT BLOOD,URINE NEGATIVE (NEGATIVE); PROTEIN,URINE NEGATIVE (NEGATIVE); UROBILINOGEN,URINE 0.2 (NORMAL) E.U./dL (NORMAL)
[2023-11-09 16:59] LABS: CLARITY,URINE CLEAR (CLEAR)
[2023-11-09] MEDS: METOPROLOL SUCCINATE 50 MG TABLET PO ONE (21:12)
[2023-11-09] MEDS: hydrOXYzine PAMOATE 25 MG CAPSULE PO STA (21:25)
--- NOTE | 2023-11-09 21:51 | HISTORY & PHYSICAL EXAMINATION ---
Chief Complaint - Chief Complaint Chief Complaint: weakness History of Present Illness - Admitted From Admitted From:: home - History Obtained From Records Reviewed: yes History obtained from: patient + ER staff Exam Limitations: telemedicine - History of Present Illness HPI Comment/Other: Ms Cespedes is a 78 yo F with history paroxysmal atrial fibrillation, has been on Eliquis in the past. Presents to the ER with c/o weakness, unable to get out of bed/walk. She has not been taking her Eliquis regularly for the past several months due to lack of refills, financial situation. She has not been taking any medications at home because she has not had any refills, no follow up with PCP. She drinks alcohol rarely, denies illicit drug use. Denies tobacco use. She denies chest pain or palpitations. She denies dyspnea at rest, but has had progressive dyspnea with exertion. She went to the bathroom while in the ER and felt like she was "huffing and puffing" getting there. She has chronic LE swelling, slightly worse than usual. Denies weight gain. Denies abd pain, n/v, fevers, chills. O2 sats stable on RA. Currently rate controlled A fib, was in RVR when seen in ER yesterday, but resolved with resuming metoprolol succinate 100 mg daily (Received dose this morning) and IV metoprolol dose. She was seen in the ER yesterday with c/o weakness, fall hitting her head, altered mental status, anxiety. She was discharged home and returned today after having a fall at home overnight. 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 HEENT: reports: Other Derm: reports: Skin cancer surgery - POLST Patient has POLST: Yes Meds/Allgy - Home Medications Home Medications: Ambulatory Orders Medication Instructions Recorded Confirmed Citalopram [CeleXA] 40 mg PO DAILY 01/06/13 07/28/23 Metoprolol Succinate [Toprol Xl] 100 mg PO QPM 04/21/13 12/14/18 Lisinopril/Hydrochlorothiazide 1 tab PO BID 07/14/14 12/14/18 [Zestoretic 20-12.5 mg Tablet] Aspirin [Aspirin EC] 81 mg PO DAILY 12/14/18 07/28/23 Buspirone HCl 10 mg PO BID 12/14/18 12/14/18 metFORMIN [Glucophage] 500 mg PO DAILY 12/14/18 07/28/23 Apixaban [Eliquis] 5 mg PO BID 01/05/20 07/28/23 Furosemide [Lasix] 20 mg PO DAILY #14 tablet 01/05/20 hydrOXYzine HCL [Hydroxyzine HCl] 25 mg PO QPM 01/05/20 01/05/20 Alprazolam [Xanax] 0.25 mg PO BID PRN #10 tablet 02/04/22 Alprazolam [Xanax] 0.25 mg PO Q6H PRN #12 tablet 11/09/23 - Allergies Allergies/Adverse Reactions: Allergies Allergy/AdvReac Type Severity Reaction Status Date / Time Sulfa (Sulfonamide Allergy Severe Hives Verified 11/08/23 18:08 Antibiotics) amoxicillin trihydrate * AdvReac Intermediate Nausea/Vomi Verified 11/08/23 18:08 [From Augmentin] ting potassium clavulanate * AdvReac Intermediate Nausea/Vomi Verified 11/08/23 18:08 [From Augmentin] ting buspirone HCl * [From BuSpar] AdvReac Mild Confusion Verified 11/08/23 18:08 erythromycin base AdvReac Mild Nausea Verified 11/08/23 18:08 fluoxetine HCl * AdvReac Mild Confusion Verified 11/08/23 18:08 [From Prozac] paroxetine HCl * [From Paxil] AdvReac Mild Confusion Verified 11/08/23 18:08 sertraline HCl * AdvReac Mild Confusion Verified 11/08/23 18:08 [From Zoloft] venlafaxine HCl * AdvReac Mild Confusion Verified 11/08/23 18:08 [From Effexor] Review of Systems - Constitutional Constitutional: reports: Fatigue, Malaise, Weakness. denies: Fever, Chills, Po or appetite - Ears, Nose & Throat Ears, Nose & Throat: denies: Hearing loss - Cardiovascular Cariovascular: reports: Irregular heart rate, Edema (chronic LE edema swelling several years, now slightly worse), Lightheadedness, Exertional dyspnea. denies: Palpitations, Chest pain, Syncope - Respiratory Respiratory: denies: Cough, Sputum production, Wheezing, Hemoptysis - Gastrointestinal Gastrointestinal: reports: Constipation, Diarrhea (alternate diarrhea/constipation, chronic). denies: Abdominal pain, Nausea, Vomiting - Genitourinary Genitourinary: denies: Dysuria, Frequency, Urgency - Musculoskeletal Musculoskeletal: denies: Muscle pain, Muscle aches - Integumentary Integumentary: denies: Rash, Pruritis - Neurological Neurological: reports: General weakness. denies: Focal weakness, Headache, Dizziness, Numbness, Slurred speech Exam - Vital Signs Reviewed Vital Signs: Yes Vital Signs: Vital Signs x48h Pulse Pulse Pulse Pulse Resp BP BP 11/09/23 21:00 70 18 135/90 H 11/09/23 19:00 75 18 196/108 H 11/09/23 17:48 105 H 18 201/107 H 11/09/23 17:23 95 122 H 80 188/106 H 11/09/23 15:00 76 16 181/102 H 11/09/23 14:00 124 H 12 145/111 H BP BP Pulse Ox 11/09/23 21:00 94 11/09/23 19:00 96 11/09/23 17:48 95 11/09/23 17:23 192/170 H 171/99 H 11/09/23 15:00 99 11/09/23 14:00 96 - Physical Exam General Appearance: positive: No acute distress Respiratory: positive: No respiratory distress Cardiovascular: positive: Irregularly irregular Skin: positive: Color nml, No rash Neurologic/Psychiatric: positive: Oriented x3, Motor nml. negative: Facial droop, Slurred/abnml speech Conclusion/Plan - Lab Results Lab results reviewed: Yes Fish Bones: 11/09/23 13:26 11/09/23 13:26 - Diagnostic Imaging Results Diagnostic Imaging Results: positive: Final report reviewed - EKG Results EKG Interpreted Independently: Yes - Other Other Results/Comments: Elevated troponin -Suspected demand ischemia in setting of RVR (now resolved) and medication noncompliance -Patient reports history of CHF, details unclear -Patient denies chest pain -EKG reviewed, A fib with HR 118 this a.m., now rate controlled on telemetry -Echocardiogram ordered -Trend troponin repeat in a.m., trending down 18 -> 15 Dyspnea on exertion -CTA chest negative for PE, no evidence of infiltrates or pulmonary edema -O2 sats stable on RA -No dyspnea at rest -Lasix 20 mg IV x 1 dose and assess response -Home dose lasix 20 mg daily, resume, not taking prior to admission -Follow up echocardiogram as above Paroxysmal atrial fibrillation -Currently rate controlled -Continue home medication metoprolol succinate 100 mg daily (received dose this a.m. 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
[2023-11-09] MEDS ORDERED: ACETAMINOPHEN 325 MG TABLET PO PRN (21:56)
[2023-11-09] MEDS ORDERED: SODIUM CHLORIDE FLUSH 0.9% 10 ML SYRINGE IVP PRN (21:56)
[2023-11-09] MEDS ORDERED: ONDANSETRON 4 MG/2 ML VIAL IVP PRN (21:56)
[2023-11-09] MEDS: FUROSEMIDE 20 MG/2 ML VIAL IVP STA (23:02)
[2023-11-10] MEDS: SODIUM CHLORIDE FLUSH 0.9% 10 ML SYRINGE IVP SCH (01:00)
[2023-11-10 05:45] LABS: CALCIUM 9.5 mg/dL (8.5-10.3); POTASSIUM 3.2 mmol/L (3.5-4.5)
[2023-11-10 06:13] LABS: TROPONIN I HIGH SENSITIVITY 17.7 ng/L (2.3-14.8)
[2023-11-10] MEDS ORDERED: ACETAMINOPHEN 325 MG TABLET PO ONE (08:37)
[2023-11-10] MEDS ORDERED: diphenhydrAMINE 25 MG CAPSULE PO ONE (08:37)
[2023-11-10] MEDS: APIXABAN 5 MG TABLET PO SCH (08:53)
[2023-11-10] MEDS: FUROSEMIDE 20 MG TABLET PO SCH (08:53)
--- NOTE | 2023-11-10 11:04 | PHARMACY PROGRESS NOTE ---
- Best Possible Medication History Admit Date and Time: 11/09/23 4994 Processed by: Pharmacy Medications reviewed in ED?: No Medication History completed: Yes Patient Interview: Completed Secondary Source(s): Insurance records (Medication Reconciliation completed by [facility]yn [facility]. Medications have not been filled by pharmacy (per insurance records) in over 1 month. Likely has been out of medications as also reported by physician per notes.) As the person ultimately responsible for medication therapy, providers are able to order a medication from an existing home medication list in [facility] via the "Reconcile Routine" prior to Confirmation of that medication by technical support professional. Such practice is discouraged except when the physician, in their clinical judgment, deems that a medical need exists for a medication without regard to previous use.
--- NOTE | 2023-11-10 15:14 | PROVIDER PROGRESS NOTE ---
Subjective - Prog Note Date Prog Note Date: 11/10/23 Prog Note Time: 15:30 - Subjective Pt reports feeling: Improved Subjective: The patient is a 78-year-old female with a history of persistent atrial fibrillation. She was maintained on flecainide and Eliquis in the past. She states that she quit taking her medications a long time ago because she cannot get to her PCP and she did not have refills. She said she also could not afford her medications. She has been having worsening weakness. She has been extremely short of breath with lower extremity swelling that is worse than usual. In the emergency room she was found to be in atrial fibrillation. She was in the emergency room yesterday and was in RVR but this resolved when she was given IV metoprolol and started on metoprolol succinate 100 mg. In the emergency room yesterday she was complaining of weakness. She had a fall and hit her head. She was confused and anxious. She was discharged home but returned to the emergency room last night as she had a fall again. When I went to see her she states she is feeling little bit better. She states that she has been so weak that she cannot walk. She said that she is feeling better now that she has been back on some of her medications. She is waiting to work with physical therapy. She denies fever or shaking chills. No chest pain. She has had some heart palpitations. No nausea vomiting or diarrhea. No urinary complaints Current Medications - Current Medications Current Medications: Acetaminophen 650 mg p.o. every 4 hours as needed Eliquis 5 mg p.o. twice daily Lasix 20 mg daily Metoprolol succinate 100 mg p.o. every afternoon Zofran 4 mg IV as needed nausea every 6 hours Objective - Vital Signs/Intake & Output Reviewed Vital Signs: Yes Vital Signs: Vital Signs x48h Temp Pulse Resp BP BP Pulse Ox 11/10/23 14:06 36.9 C 81 18 148/81 H 97 11/10/23 08:15 36.7 C 79 18 151/93 H 97 Intake & Output: Intake & Output 11/07/23 11/08/23 11/09/23 11/10/23 23:59 23:59 23:59 23:59 Intake Total 480 Output Total 750 Balance -270 - Objective General Appearance: positive: No acute distress Eyes Bilateral: positive: Normal inspection ENT: positive: ENT inspection nml Neck: positive: Nml inspection Respiratory: positive: Chest non-tender, No respiratory distress, Breath sounds nml Cardiovascular: positive: Irregularly irregular Abdomen: positive: Non-tender, No organomegaly, Nml bowel sounds Skin: positive: Color nml, No rash, Warm, Dry Extremities: positive: Non-tender, Full ROM Neurologic/Psychiatric: positive: Oriented x3, CN's nml (2-12) - Lab Results Fish Bones: 11/09/23 13:26 11/10/23 05:20 Other Labs: Lab Results x24hrs 11/10/23 11/09/23 11/09/23 Range/Units 05:20 16:40 16:17 Sodium 140 (135-145) mmol/L Potassium 3.2 L (3.5-4.5) mmol/L Chloride 105 (101-111) mmol/L Carbon Dioxide 27 (21-32) mmol/L Anion Gap 8.0 (6-13) BUN 19 (6-20) mg/dL Creatinine 1.0 (0.6-1.3) mg/dL Estimated GFR (MDRD) 54 L (>89) Glucose 99 (74-104) mg/dL Calcium 9.5 (8.5-10.3) mg/dL Troponin I High Sens 17.7 H* 18.7 H* (2.3-14.8) ng/L Urine Color YELLOW Urine Clarity CLEAR (CLEAR) Urine pH 7.0 (5.0-7.5) PH Ur Specific [place] 1.010 (1.002-1.030) Urine Protein NEGATIVE (NEGATIVE) mg/dL Urine Glucose (UA) NEGATIVE (NEGATIVE) mg/dL Urine Ketones NEGATIVE (NEGATIVE) mg/dL Urine Occult Blood NEGATIVE (NEGATIVE) Urine Nitrite NEGATIVE (NEGATIVE) Urine Bilirubin NEGATIVE (NEGATIVE) Urine Urobilinogen 0.2 (NORMAL) (NORMAL) E.U./dL Ur Leukocyte Esterase NEGATIVE (NEGATIVE) Ur Microscopic Review NOT INDICATED Urine Culture Comments NOT INDICATED Assessment/Plan - Problem List (1) Persistent atrial fibrillation Impression: For now the patient will continue metoprolol. She was supposed to be on flecainide 150 mg p.o. twice daily. She has been off of this for quite some time. Will restart this at 50 mg p.o. twice daily. We will get the [facility] to assist with her medications. She will continue Eliquis 5 mg p.o. twice daily (2) Non-ischemic myocardial injury (non-traumatic) Impression: The patient's troponins were elevated but flat. She is not having any evidence of chest pain. This is likely due to her atrial fibrillation with rapid rates that she has been going in and out of. (3) Acute diastolic heart failure Impression: This was a mild diastolic congestive heart failure exacerbation. The patient was extremely short of breath with lower extremity edema. She received 1 dose of IV Lasix with significant improvement. Continue p.o. Lasix daily at 20 mg. 2D echocardiogram is pending (4) Moderate major depression Impression: The patient previously took citalopram 40 mg daily at home. Will start her back on 20 mg and increase it in a few days. (5) HTN (hypertension) Impression: Currently on metoprolol 100 mg daily (6) Medical non-compliance Impression: This is due to not being able to afford her medications as well as having difficulties with transportation to appointments. I have asked the [facility] to help her with her medications when she gets out of the hospital (7) Ambulatory dysfunction Impression: The patient has not been on her medications in quite some time. I believe that her increasing weakness is likely due to her atrial fibrillation being poorly controlled. She is being placed back on Tikosyn today. We will get her back on all of her medications and continue to work with physical therapy. Will see how she is tomorrow and make further decisions at that time (8) Hypokalemia Impression: I will replete today as her potassium level is somewhat low. Due to her atrial fibrillation would like to keep her potassium above 4 and her magnesium above 2. She has not had a magnesium level ordered and I will order 1 today. Disposition: The patient will remain in observation in the hospital. Physical therapy and Occupational Therapy will see her. I believe she has been so weak due to being off of all of her medications. Hopefully her strength will improve quickly and she can be discharged back to home with home health physical therapy and Occupational Therapy possibly as early as tomorrow. Time spent: 35 minutes .
[2023-11-10] MEDS: POTASSIUM CHLORIDE 20 MEQ TABLET PO ONE (17:05)
[2023-11-10] MEDS: FLECAINIDE 50 MG TABLET PO SCH (21:03)
[2023-11-10] MEDS: METOPROLOL SUCCINATE 50 MG TABLET PO SCH (21:03)
[2023-11-11 05:53] LABS: CALCIUM 9.4 mg/dL (8.5-10.3); MAGNESIUM 1.8 mg/dL (1.7-2.3); POTASSIUM 3.6 mmol/L (3.5-4.5)
[2023-11-11] MEDS ORDERED: hydrALAZINE INJ 20 MG/ML VIAL IVP PRN (07:32)
[2023-11-11] MEDS: CITALOPRAM 10 MG TABLET PO SCH (08:14)
[2023-11-11] MEDS: LOSARTAN 50 MG TABLET PO SCH (08:14)
--- NOTE | 2023-11-11 10:31 | PROVIDER PROGRESS NOTE ---
Subjective - Prog Note Date Prog Note Date: 11/11/23 Prog Note Time: 10:30 - Subjective Pt reports feeling: No change Subjective: The patient states that she is feeling a little bit stronger today but overall is still weak. She was able to stand up and pivot with physical therapy today but that was about it. She denies fever or chills. No chest pain, shortness of breath or cough. No nausea vomiting or diarrhea. No urinary complaints. Overall she just feels weak and feels like her legs are going to give out. Current Medications - Current Medications Current Medications: Acetaminophen 650 mg p.o. every 4 hours as needed Eliquis 5 mg p.o. twice daily Lasix 20 mg daily Metoprolol succinate 100 mg p.o. every afternoon Zofran 4 mg IV as needed nausea every 6 hours Flecainide 50 mg BID Objective - Vital Signs/Intake & Output Reviewed Vital Signs: Yes Vital Signs: Vital Signs x48h Temp Pulse Resp BP BP Pulse Ox 11/11/23 07:37 37.2 C 50 L 16 163/84 H 93 11/11/23 05:00 36.6 C 66 20 175/89 H 184/90 H 98 Intake & Output: Intake & Output 11/08/23 11/09/23 11/10/23 11/11/23 23:59 23:59 23:59 23:59 Intake Total 1070 290 Output Total 925 0 Balance 145 290 - Objective General Appearance: positive: No acute distress, Alert, Mild distress Eyes Bilateral: positive: Normal inspection ENT: positive: ENT inspection nml Neck: positive: Nml inspection Respiratory: positive: Chest non-tender, No respiratory distress, Breath sounds nml Cardiovascular: positive: No murmur, No gallop, Irregularly irregular (But rate controlled) Abdomen: positive: Non-tender, No organomegaly, Nml bowel sounds Skin: positive: Color nml, No rash, Warm, Dry Extremities: positive: Non-tender, Full ROM Neurologic/Psychiatric: positive: Oriented x3, CN's nml (2-12) - Lab Results Fish Bones: 11/09/23 13:26 11/11/23 05:25 Other Labs: Lab Results x24hrs 11/11/23 Range/Units 05:25 Sodium 139 (135-145) mmol/L Potassium 3.6 (3.5-4.5) mmol/L Chloride 107 (101-111) mmol/L Carbon Dioxide 24 (21-32) mmol/L Anion Gap 8.0 (6-13) BUN 24 H (6-20) mg/dL Creatinine 1.0 (0.6-1.3) mg/dL Estimated GFR (MDRD) 54 L (>89) Glucose 103 (74-104) mg/dL Calcium 9.4 (8.5-10.3) mg/dL Magnesium 1.8 (1.7-2.3) mg/dL Assessment/Plan - Problem List (1) Persistent atrial fibrillation Impression: The patient was started back on her flecainide yesterday. Continue metoprolol 100 mg daily for now (2) Non-ischemic myocardial injury (non-traumatic) Impression: Likely due to her atrial fibrillation. 2D echocardiogram has been ordered but not yet performed (3) Acute diastolic heart failure Impression: This was a mild diastolic congestive heart failure exacerbation. The patient was extremely short of breath with lower extremity edema on admission. She received 1 dose of IV Lasix with significant improvement. Continue p.o. Lasix daily at 20 mg. 2D echocardiogram is pending (4) Moderate major depression Impression: Continue citalopram 20 mg daily. Her former dose was 40 mg. We will increase this in a few days up to her normal dose (6) Medical non-compliance Impression: The patient has not been taking any medications due to cost and inability to get to the doctor's office. The social work team is working on resources for the patient (7) Ambulatory dysfunction Impression: Unfortunately the patient is still unable to ambulate making it difficult to send her home. Medicaid application has been filled out. She will work with physical therapy today and hopefully she will be strong enough that she could go home in the near future (8) Hypokalemia Impression: Repleted and resolved Disposition: The patient is not safe to go home at this time due to her to her inability to ambulate. Will continue to work with physical therapy. Hopefully she will get strong enough to go home in the next couple of days that she gets back on her normal home medications. It is difficult to tell when this will happen. She will remain in observation for now Time spent: 35 minutes
[2023-11-11] MEDS: traZODone 50 MG TABLET PO SCH (21:18)
[2023-11-12 05:38] LABS: BASOPHILS # (AUTO) 0.1 10^3/uL (0.0-0.1); BASOPHILS % (AUTO) 0.6 %; EOSINOPHILS # (AUTO) 0.3 10^3/uL (0.0-0.7); EOSINOPHILS % (AUTO) 3.2 %; HCT - HEMATOCRIT 39.1 % (37.0-47.0); HGB - HEMOGLOBIN 12.5 g/dL (12.0-16.0); LYMPHOCYTES # (AUTO) 4.1 10^3/uL (1.5-3.5); LYMPHOCYTES % (AUTO) 44.1 %; MEAN CORPUSCULAR HEMOGLOBIN 29.3 pg (27.0-31.0); MEAN CORPUSCULAR VOLUME 91.8 fL (81.0-99.0); MEAN PLATELET VOLUME 11.2 fL (7.9-10.8); MONOCYTES # (AUTO) 0.6 10^3/uL (0.0-1.0); MONOCYTES % (AUTO) 6.1 %; NEUTROPHILS # (AUTO) 4.2 10^3/uL (1.5-6.6); NEUTROPHILS % (AUTO) 45.8 %; PLT - PLATELET COUNT 345 10^3/uL (130-450); RED BLOOD COUNT 4.26 10^6/uL (4.20-5.40); RED CELL DISTRIBUTION WIDTH 13.9 % (12.0-15.0); WHITE BLOOD COUNT 9.3 x10^3/uL (4.8-10.8)
[2023-11-12 05:56] LABS: ALBUMIN 3.5 g/dL (3.2-5.5); CALCIUM 9.4 mg/dL (8.5-10.3); CREATININE 0.9 mg/dL (0.6-1.3); MAGNESIUM 1.8 mg/dL (1.7-2.3); PHOSPHORUS 4.6 mg/dL (2.5-5.0); POTASSIUM 3.5 mmol/L (3.5-4.5)
[2023-11-12 08:14] VITALS: BP 145/90; O2SAT 97
[2023-11-12] MEDS: MULTIVITAMIN W/MINERALS TABLET PO SCH (10:42)
[2023-11-12] MEDS: CHOLECALCIFEROL 25 MCG TABLET PO SCH (10:42)
--- NOTE | 2023-11-12 11:24 | Discharge Plan ---
Discharge Plan Problem Reviewed?: Yes Disposition: 06 Home Health Service Condition: Good Prescriptions: Losartan [Cozaar] 50 mg PO DAILY #30 tab Furosemide [Lasix] 20 mg PO DAILY #30 tab Diet: Regular Activity Restrictions: Activity as Tolerated (Ambulate with a rolling walker) Shower Restrictions: No Driving Restrictions: No Assistance Devices: Walker Plan of Treatment: You were admitted to the hospital with significant weakness and inability to ambulate. You have been off of your medications for quite some time. It is felt that your increased weakness was due to uncontrolled atrial fibrillation. You were placed back on your flecainide and Eliquis and we got she started back on all of your other medications. Over the course of this hospitalization you have improved. You have made steady progress with physical therapy and Occupational Therapy. He will be discharged today and we are setting up home he alth services in the home setting. [facility] assistance for your medications at discharge. At this point it is felt that you can safely be discharged to home with close outpatient follow-up. You should get reestablished with your primary care physician and follow-up accordingly. Also would continue plans to look into assisted living. A Medicaid application was started during this hospitalization and you should follow-up on that as it could significantly help you going forward. Assessment: 1. Persistent atrial fibrillation The patient was started back on her flecainide. She has remained in the hospital for the past 48 hours and is doing well. She initially was on metoprolol but this is since been stopped. She is currently rate controlled 2. Nonischemic myocardial injury Likely due to her atrial fibrillation. She did have a 2D echocardiogram which revealed normal LV and RV function. No concerning valvular heart disease or wall motion abnormality the troponin elevation was likely nonischemic in nature 3. Acute diastolic congestive heart failure The patient was extremely short of breath and mildly volume overloaded on admiss ion with lower extremity edema. Echocardiogram was nonrevealing so this was likely mild diastolic congestive heart failure. She received 1 dose of IV Lasix with significant improvement. She will continue Lasix 20 mg daily at home 4. Moderate major depression She had been off all of her medications. She will continue citalopram 40 mg daily. This was titrated starting at 20 mg on admission 5. Medical noncompliance The patient had not been taking any of her medications due to the cost and inability to get to the doctor's office. Will have the care managers try to get her reestablished with her primary and we have gotten her medication assistance at discharge 6. Sarcopenia with previous weight she told me that she wants to try medication for her blood pressure because she has so many drug allergies she is afraid something because hydralazine I have not done that yet well to put her on something ago to go back and see if I can see any of her records and see if she has been tried on anything before previous ambulatory dysfunction Patient is significantly weak but has made steady improvements. When she first came in the hospital she could not walk at all and now she is able to walk about 20 feet. She does have some continued issues with orthostasis but it is mild. She is encouraged to stand up and make sure she is steady before she starts to ambulate 7. Hypokalemia Repleted and resolved Follow-Up Care: Home Health - PT, Home Health - OT No Smoking: If you smoke, Please STOP! Call for help.
--- NOTE | 2023-11-12 11:47 | DISCHARGE SUMMARY ---
Discharge Summary Admit Date: 11/09/23 Discharge Date: 11/12/23 Discharging Provider: Rebekah Presley PA-C Code Status: Attempt Resuscitation Condition at Discharge: Fair Discharge Disposition: Home Health Service - DIAGNOSES Discharge Diagnoses with Status of Each Condition: 1. Persistent atrial fibrillation The patient was started back on her flecainide. She has remained in the hospital for the past 48 hours and is doing well. She initially was on metoprolol but this is since been stopped. She is currently rate controlled 2. Nonischemic myocardial injury Likely due to her atrial fibrillation. She did have a 2D echocardiogram which revealed normal LV and RV function. No concerning valvular heart disease or wall motion abnormality the troponin elevation was likely nonischemic in nature 3. Acute diastolic congestive heart failure The patient was extremely short of breath and mildly volume overloaded on admi ssion with lower extremity edema. Echocardiogram was nonrevealing so this was likely mild diastolic congestive heart failure. She received 1 dose of IV Lasix with significant improvement. She will continue Lasix 20 mg daily at home 4. Moderate major depression She had been off all of her medications. She will continue citalopram 40 mg daily. This was titrated starting at 20 mg on admission 5. Medical noncompliance The patient had not been taking any of her medications due to the cost and inability to get to the doctor's office. Will have the care managers try to get her reestablished with her primary and we have gotten her medication assistance at discharge 6. Sarcopenia with subsequent ambulatory dysfunction Patient is significantly weak but has made steady improvements. When she first came in the hospital she could not walk at all and now she is able to walk about 20 feet. She does have some continued issues with orthostasis but it is mild. She is encouraged to stand up and make sure she is steady before she starts to ambulate 7. Hypokalemia Repleted and resolved - HPI History of Present Illness: Ms Cespedes is a 78 yo F with history paroxysmal atrial fibrillation, has been on Eliquis in the past. Presents to the ER with c/o weakness, unable to get out of bed/walk. She has not been taking her Eliquis regularly for the past several months due to lack of refills, financial situation. She has not been taking any medications at home because she has not had any refills, no follow up with PCP. She drinks alcohol rarely, denies illicit drug use. Denies tobacco use. She denies chest pain or palpitations. She denies dyspnea at rest, but has had progressive dyspnea with exertion. She went to the bathroom while in the ER and felt like she was "huffing and puffing" getting there. She has chronic LE swelling, slightly worse than usual. Denies weight gain. Denies abd pain, n/v, fevers, chills. O2 sats stable on RA. Currently rate controlled A fib, was in RVR when seen in ER yesterday, but resolved with resuming metoprolol succinate 100 mg daily (Received dose this morning) and IV metoprolol dose. She was seen in the ER yesterday with c/o weakness, fall hitting her head, altered mental status, anxiety. She was discharged home and returned today after having a fall at home overnight. - HOSPITAL COURSE Hospital Course: The patient was brought to the hospital after having falls at home and being unable to ambulate. Her workup has been largely unrevealing. She was in atrial fibrillation at the time of admission with controlled rate. In talking to the patient she has grown increasingly weaker over the past several weeks to months. She has gotten to the point that she cannot get up out of bed or ambulate. Her is quite concerned as it is difficult to care for her at home. In discussing the past several months with the patient she states that she has been off of all of her medications for a long time. She has not been following with her primary care provider as well. We initiated her back on her home dose of flecainide 50 mg twice daily. She was started back on Eliquis as well as her other medications. We have obtained medication assistance at discharge and she will and hopefully we can help facilitate getting her set up with her primary care physician. The patient and her both are not in very good shape. It may not be a safe living situation. Medicaid application was filled out and at least the process has been started. She may need assisted living or skilled placement going forward if she does not significantly improve. At this point maximum hospital benefit has been reached. The patient will be discharged today in stable condition. - ALLERGIES Allergies/Adverse Reactions: Allergies Allergy/AdvReac Type Severity Reaction Status Date / Time Sulfa (Sulfonamide Allergy Severe Hives Verified 11/08/23 18:08 Antibiotics) amoxicillin trihydrate * AdvReac Intermediate Nausea/Vomi Verified 11/08/23 18:08 [From Augmentin] ting potassium clavulanate * AdvReac Intermediate Nausea/Vomi Verified 11/08/23 18:08 [From Augmentin] ting buspirone HCl * [From BuSpar] AdvReac Mild Confusion Verified 11/08/23 18:08 erythromycin base AdvReac Mild Nausea Verified 11/08/23 18:08 fluoxetine HCl * AdvReac Mild Confusion Verified 11/08/23 18:08 [From Prozac] paroxetine HCl * [From Paxil] AdvReac Mild Confusion Verified 11/08/23 18:08 sertraline HCl * AdvReac Mild Confusion Verified 11/08/23 18:08 [From Zoloft] venlafaxine HCl * AdvReac Mild Confusion Verified 11/08/23 18:08 [From Effexor] - MEDICATIONS Home Medications: Ambulatory Orders Medication Instructions Recorded Confirmed Citalopram [CeleXA] 40 mg PO DAILY 01/06/13 11/10/23 Apixaban [Eliquis] 5 mg PO BID 01/05/20 11/10/23 Flecainide [Tambocar] 150 mg PO BID 11/10/23 11/10/23 Cholecalciferol [Vitamin D3] 50 mcg PO DAILY tab 11/12/23 Furosemide [Lasix] 20 mg PO DAILY #30 tab 11/12/23 Losartan [Cozaar] 50 mg PO DAILY #30 tab 11/12/23 - PHYSICAL EXAM AT DISCHARGE General Appearance: positive: No acute distress Eyes Bilateral: positive: Normal inspection ENT: positive: ENT inspection nml Neck: positive: Nml inspection Respiratory: positive: Chest non-tender, No respiratory distress Cardiovascular: positive: Regular rate & rhythm, No murmur, No gallop Abdomen: positive: Non-tender, No organomegaly, Nml bowel sounds, No distention Skin: positive: Color nml, No rash, Warm, Dry Extremities: positive: Non-tender, Full ROM - LABS Result Diagrams: 11/12/23 05:10 11/12/23 05:10 - FOLLOW UP Follow Up: She should re-establish with legal aid. - TIME SPENT Time Spent in Discharge (Minutes): 45
== END 2023-11-12 13:14 | disposition home health service (06) ==
LOC: EDUNIT# → ED 11:34 → MS2 21:56
PROVIDERS: ADMIT Student in an Organized Health Care Education/Training Program; ATTEND Student in an Organized Health Care Education/Training Program
DX: I48.19 Other persistent atrial fibrillation (principal); I5A Non-ischemic myocardial injury (non-traumatic); I50.31 Acute diastolic (congestive) heart failure; F32.1 Major depressive disorder, single episode, moderate; M62.84 Sarcopenia; E87.6 Hypokalemia; T45.516A Underdosing of anticoagulants, initial encounter; F41.9 Anxiety disorder, unspecified; I11.0 Hypertensive heart disease with heart failure; E78.00 Pure hypercholesterolemia, unspecified; M19.90 Unspecified osteoarthritis, unspecified site; I48.0 Paroxysmal atrial fibrillation; G47.33 Obstructive sleep apnea (adult) (pediatric); E66.9 Obesity, unspecified; Z68.31 Body mass index [BMI] 31.0-31.9, adult; Z79.01 Long term (current) use of anticoagulants; Z79.82 Long term (current) use of aspirin; Z79.84 Long term (current) use of oral hypoglycemic drugs; Z79.899 Other long term (current) drug therapy; Z87.891 Personal history of nicotine dependence; Z88.0 Allergy status to penicillin; Z88.1 Allergy status to other antibiotic agents; Z88.2 Allergy status to sulfonamides; Z88.8 Allergy status to other drugs, medicaments and biological substances; Z90.49 Acquired absence of other specified parts of digestive tract; Z91.128 Patient's intentional underdosing of medication regimen for other reason; Z91.199 Patient's noncompliance with other medical treatment and regimen due to unspecified reason; Z91.81 History of falling
CPT/HCPCS: 36415; 71275; 80048; 80053; 80069; 81003; 83690; 83735; 84484; 85025; 93005; 93307; 96374; 96375; 96376; 97162; 97166; 97530; 99285; A9270; G0378; Q9967; 81001; 86850; 86900; 86901; 86920; 87086